=== PATIENT | male | born 1985 | race Caucasian/White ===

== ENCOUNTER 2016-09-11 16:31 | Inpatient (IN) | payer MEDICARE, OTHER ==
[~2016-09-11] VITALS: Ht 182.9 cm; Wt 137.6 kg
[2016-09-11 16:33] VITALS: BP 137/97; PULSE 104; RESP 14; TEMP 97.8; O2SAT 96
[2016-09-11 17:01] VITALS: BP 137/81; PULSE 107; RESP 18; TEMP 97.8; O2SAT 95
[2016-09-11] MEDS ORDERED: MULT1TAB84 PO (17:20)
[2016-09-11] MEDS ORDERED: FLUO40CA PO (17:20)
[2016-09-11] MEDS ORDERED: LAMO25 PO (17:20)
[2016-09-11] MEDS ORDERED: CHOL50006 PO (17:20)
[2016-09-11] MEDS ORDERED: CLOZ200T PO (17:20)
[2016-09-11] MEDS ORDERED: PROP10TA6 PO (17:20)
[2016-09-11] MEDS ORDERED: ARIP1TAB7 PO (17:20)
[2016-09-11] MEDS ORDERED: CLOZ100T3 PO (17:20)
[2016-09-11] MEDS ORDERED: TRAZ300T2 PO (17:20)
[2016-09-11] MEDS ORDERED: TOPA100T11 PO (17:20)
[2016-09-11] MEDS ORDERED: FISH1000 PO (17:20)
--- NOTE | 2016-09-11 17:31 | PD ---
HPI Chief Complaint: Psychiatric Symptoms Time Seen by Provider: 17:27 Travel History International Travel<30 days: No Contact w/Intl Traveler<30days: No Traveled to known affect area: No History of Present Illness HPI 31-year-old male coming in voluntarily for psychiatric evaluation. Patient has a history of psychiatric disease, and his psychiatrist saw him today and felt that he should be evaluated here for medication review. Patient is hearing more voices, and is suicidal without specific plan. Patient recently has a 73-eelen-uin son. He has no acute medical complaints or problems at this time. He has a history of chronic pain and takes Lyrica for fibromyalgia type symptoms. Patient is a nonsmoker and does not drink. He is allergic to Darvocet, gabapentin, and Haldol. [facility] Social History Alcohol Use: No Tobacco Use: No Substance Use: No Allergies-Medications (Allergen,Severity, Reaction): Coded Allergies: Darvocet-N 100 (Verified Allergy, Unknown, 09/11/16) Gabapentin (Verified Allergy, Unknown, 09/11/16) Haldol (Verified Allergy, Unknown, 09/11/16) Reported Meds & Prescriptions Reported Meds & Active Scripts Active Reported Multivitamin Adults (Multiple Vitamins W/ Minerals) 1 Tab 1 Tab PO DAILY Fish Oil ([place]-3 Fatty Acids) 1,000 Mg Cap 1 Tab PO DAILY Vitamin D (Cholecalciferol) 5,000 Unit Tab 1 Tab PO DAILY Propranolol (Propranolol HCl) 10 Mg Tab 10 Mg PO DAILY Trazodone (Trazodone HCl) 300 Mg Tab 200 Mg PO HS Clozapine 100 Mg Tab 100 Mg PO DAILY Clozapine 200 Mg Tab 450 Mg PO HS Fluoxetine (Fluoxetine HCl) 40 Mg Cap 40 Cap PO DAILY Topamax (Topiramate) 100 Mg Tab 100 Mg PO BID Lamictal (Lamotrigine) 25 Mg Tab 10 Mg PO DAILY Abilify (Aripiprazole) 20 Mg Tab 25 Mg PO DAILY Review of Systems Except as stated in HPI: all other systems reviewed are Neg General / Constitutional: No: Fever Eyes: No: Visual changes HENT: No: Headaches Cardiovascular: No: Chest Pain or Discomfort Respiratory: No: Shortness of Breath Gastrointestinal: No: Abdominal Pain Genitourinary: No: Dysuria Musculoskeletal: No: Pain Skin: No Rash Neurologic: No: Weakness Psychiatric: No: Depression Endocrine: No: Polydipsia Hematologic/Lymphatic: No: Easy Bruising Physical Exam Narrative GENERAL: Patient appears in no acute distress. SKIN: Warm and dry. Normal color. Normal turgor. HEAD: Atraumatic. Normocephalic. EYES: Pupils equal and round. No scleral icterus. No injection or drainage. ENT: No nasal bleeding or discharge. Mucous membranes pink and moist. NECK: Trachea midline. No JVD. CARDIOVASCULAR: Regular rate and rhythm. RESPIRATORY: No accessory muscle use. Clear to auscultation. Breath sounds equal bilaterally. GASTROINTESTINAL: Abdomen soft, non-tender, nondistended. Hepatic and splenic margins not palpable. MUSCULOSKELETAL: Extremities without clubbing, cyanosis, or edema. No obvious deformities. NEUROLOGICAL: Awake and alert. No obvious cranial nerve deficits. Motor grossly within normal limits. Five out of 5 muscle strength in the arms and legs. Normal speech. PSYCHIATRIC: Appropriate mood and affect; insight and judgment normal. Patient reports tender hallucinations. Data Data Last Documented VS Vital Signs Date Time Temp Pulse Resp B/P Pulse Ox O2 Delivery O2 Flow Rate FiO2 09/11/16 17:01 97.8 107 18 137/81 95 09/11/16 16:33 Room Air Orders Psych Screen (09/11/16 17:07) Complete Blood Count With Diff (09/11/16 17:08) Comprehensive Metabolic Panel (09/11/16 17:08) Drug Screen, Random Urine (09/11/16 17:08) Alcohol (Ethanol) (09/11/16 17:08) MDM Medical Decision Making Medical Screen Exam Complete: Yes Emergency Medical Condition: Yes Differential Diagnosis Auditory hallucination. Mood disorder. Suicidal ideation. Narrative Course Patient is medically stable at time of exam. Psychiatric labs ordered per protocol. Patient is medically clear for psychiatric evaluation. Diagnosis Primary Impression: Suicidal ideations Additional Impression: Medical clearance for psychiatric admission Condition: Stable Miguel Titus Sep 11, 2016 17:30
[2016-09-11] MEDS ORDERED: IMIT100T PO (17:45)
[2016-09-11] MEDS ORDERED: PROP120C PO (17:45)
[2016-09-11] MEDS ORDERED: LYRI50CA PO (17:45)
[2016-09-11 18:09] LABS: AUTOMATED NEUTROPHIL # 7.5 TH/MM3 (1.8-7.7); BASOPHIL # 0.1 TH/MM3 (0-0.2); BASOPHIL % 0.7 % (0.0-2.0); HEMATOCRIT 43.1 % (39.0-51.0); LYMPH % 26.8 % (9.0-44.0); MEAN CELL VOLUME 87.2 FL (80.0-100.0); MEAN CORPUSCULAR HEMOGLOBIN 30.1 PG (27.0-34.0); MEAN CORPUSCULAR HGB CONC 34.5 % (32.0-36.0); MONO % 4.9 % (0.0-8.0); NEUT % 67.6 % (16.0-70.0); PLATELET COUNT 286 TH/MM3 (150-450); RED BLOOD COUNT 4.94 MIL/MM3 (4.50-5.90); RED CELL DISTRIBUTION WIDTH 14.4 % (11.6-17.2); WHITE BLOOD COUNT 11.1 TH/MM3 (4.0-11.0)
[2016-09-11 18:27] LABS: ALKALINE PHOSPHATASE 66 U/L (45-117); TOTAL BILIRUBIN ADULT 0.3 MG/DL (0.2-1.0)
[2016-09-11 18:28] LABS: HEMO FLAGS AUTO DIFF
[2016-09-11 18:34] LABS: AMPHETAMINE, URINE NEG (NEG); BARBITURATES, URINE NEG (NEG); COCAINE, URINE NEG (NEG)
[2016-09-11 18:37] LABS: ALT (GPT) 59 U/L (12-78); ANION GAP 11 MEQ/L (5-15); AST (GOT) 16 U/L (15-37); BICARBONATE 22.5 MEQ/L (21.0-32.0); BLOOD UREA NITROGEN 13 MG/DL (7-18); CHLORIDE 111 MEQ/L (98-107); GLOMERULAR FILTRATION RATE 69 ML/MIN (>89); POTASSIUM 3.5 MEQ/L (3.5-5.1); SODIUM (NA) 144 MEQ/L (136-145)
[2016-09-11 19:37] LABS: BANDS 2 % (0-6); POLYS (SEG NEUTROPHILS) 61 % (16-70); WBC DIFF SAMPLE 100
[2016-09-11 19:39] LABS: PLATELET ESTIMATE SMEAR NORMAL (NORMAL); PLATELET MORPHOLOGY NORMAL (NORMAL); SCAN/DIFF FINAL DIFF MANUAL
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
[2016-09-11] MEDS ORDERED: MAGNESIUM HYDROXIDE SUSP 30 ML CUP PO PRN (20:00)
[2016-09-11] MEDS ORDERED: ALUMINUM/MAGNESIUM/SIMETH 30 ML CUP PO PRN (20:00)
[2016-09-11] MEDS ORDERED: PILL SPLITTER OTHER PRN (20:30)
[2016-09-11 20:44] VITALS: BP 119/56; PULSE 84; RESP 18; O2SAT 97
[2016-09-11 21:00] VITALS: BP 141/81; PULSE 95; RESP 16; TEMP 97.4; O2SAT 96
[2016-09-11] MEDS ORDERED: traZODone HCL 100 MG TAB PO SCH (21:00)
[2016-09-11] MEDS: TOPIRAMATE 100 MG TAB PO SCH (22:39)
[2016-09-11] MEDS: cloZAPine 100 MG TAB PO SCH (22:39)
[2016-09-12 06:19] VITALS: BP 142/77; PULSE 97; RESP 16; TEMP 97.4; O2SAT 98
[2016-09-12 08:13] LABS: ANION GAP 10 MEQ/L (5-15); BICARBONATE 19.9 MEQ/L (21.0-32.0); CHLORIDE 112 MEQ/L (98-107); GLOMERULAR FILTRATION RATE 81 ML/MIN (>89); POTASSIUM 4.3 MEQ/L (3.5-5.1); SODIUM (NA) 142 MEQ/L (136-145)
[2016-09-12 08:15] LABS: HDL CHOLESTEROL 55.5 MG/DL (40.0-60.0); LDL CHOLESTEROL 73 MG/DL (0-99)
[2016-09-12 08:20] LABS: BLOOD UREA NITROGEN 12 MG/DL (7-18)
[2016-09-12] MEDS: cloZAPine 100 MG TAB PO SCH ×2 (08:36→21:18)
[2016-09-12] MEDS: ARIPiprazole 5 MG TAB PO SCH (08:36)
[2016-09-12] MEDS: CHOLECALCIFEROL (VIT D3) 5000 UNIT CAP PO SCH (08:36)
[2016-09-12] MEDS: FLUoxetine HCL 20 MG CAP PO SCH (08:36)
[2016-09-12] MEDS: TOPIRAMATE 100 MG TAB PO SCH ×2 (08:36→21:18)
[2016-09-12] MEDS: lamoTRIgine 100 MG TAB PO SCH (08:36)
[2016-09-12] MEDS: MULTIVITAMINS/MINERALS THERAPEUTIC TAB PO SCH (08:37)
[2016-09-12] MEDS ORDERED: PROPRANOLOL HCL LA 120 MG CAP PO SCH (09:00)
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
[2016-09-12 12:22] LABS: HEMOGLOBIN A1a 1.4 %; HEMOGLOBIN A1b 1.7 %; HEMOGLOBIN Ao 86.5 %; HEMOGLOBIN LA1C 1.8 %; HEMOGLOBIN P3 3.3 %
[2016-09-12] MEDS ORDERED: BENZTROPINE MESYLATE 1 MG TAB PO PRN (13:15)
[2016-09-12] MEDS ORDERED: BENZTROPINE MESYLATE 2 MG/2 ML VIAL IM PRN (13:15)
--- NOTE | 2016-09-12 14:42 | PD.CONS ---
HPI Service [facility] Hospitalists Consult Requested By Primary Care Physician Unknown Diagnoses: History of Present Illness Pt with ptsd, shizoaffective d/o, chronic pain and complex regional pain by hx. apparently admitted for hearing voices and visions of him killing others. Apparently the voice calls itself Salizar. We were consulted to see this patient regarding chronic pain that he has had for many yrs. currently pt says he just has a migraine and asking for his sumatriptan he uses several times per week at dose of 100mg. Review of Systems Other chronic pain. Past Family Social History Past Medical History migraine complex regional pain syndrome per hx depression ptsd schizoaffective d/o ulnar nerve transplants bilaterally. Reported Medications Imitrex (Sumatriptan Succinate) 100 Mg Tab 100 Mg PO ONCE PRN If a satisfactory response has not been obtained at 2 hours, a second dose may be administered Propranolol ER 24 HR (Propranolol HCl) 120 Mg Cap 120 Mg PO DAILY Lyrica (Pregabalin) 50 Mg Cap 50 Mg PO TID Multivitamin Adults (Multiple Vitamins W/ Minerals) 1 Tab 1 Tab PO DAILY Fish Oil ([place]-3 Fatty Acids) 1,000 Mg Cap 1 Tab PO DAILY Vitamin D (Cholecalciferol) 5,000 Unit Tab 1 Tab PO DAILY Trazodone (Trazodone HCl) 300 Mg Tab 200 Mg PO HS Clozapine 100 Mg Tab 100 Mg PO DAILY Clozapine 200 Mg Tab 450 Mg PO HS Fluoxetine (Fluoxetine HCl) 40 Mg Cap 40 Cap PO DAILY Topamax (Topiramate) 100 Mg Tab 100 Mg PO BID Lamictal (Lamotrigine) 25 Mg Tab 10 Mg PO DAILY Abilify (Aripiprazole) 20 Mg Tab 25 Mg PO DAILY Allergies: Coded Allergies: Darvocet-N 100 (Verified Allergy, Unknown, 09/11/16) Gabapentin (Verified Allergy, Unknown, 09/11/16) Haldol (Verified Allergy, Unknown, 09/11/16) Family History nc Social History no etoh/tob Physical Exam Vital Signs nad heart reg lung cta abd s/nt ext no edema Vital Signs Date Time Temp Pulse Resp B/P Pulse Ox O2 Delivery O2 Flow Rate FiO2 09/12/16 06:19 97.4 97 16 142/77 98 09/11/16 21:00 97.4 95 16 141/81 96 09/11/16 20:44 84 18 119/56 97 Room Air 09/11/16 17:01 97.8 107 18 137/81 95 09/11/16 16:33 97.8 104 14 137/97 96 Room Air Laboratory Laboratory Tests Test 09/11/16 09/11/16 09/12/16 17:48 17:50 07:14 White Blood Count 11.1 Red Blood Count 4.94 Hemoglobin 14.9 Hematocrit 43.1 Mean Corpuscular Volume 87.2 Mean Corpuscular Hemoglobin 30.1 Mean Corpuscular Hemoglobin 34.5 Concent Red Cell Distribution Width 14.4 Platelet Count 286 Mean Platelet Volume 9.2 Neutrophils (%) (Auto) 67.6 Lymphocytes (%) (Auto) 26.8 Monocytes (%) (Auto) 4.9 Eosinophils (%) (Auto) 0.0 Basophils (%) (Auto) 0.7 Neutrophils # (Auto) 7.5 Lymphocytes # (Auto) 3.0 Monocytes # (Auto) 0.5 Eosinophils # (Auto) 0.0 Basophils # (Auto) 0.1 CBC Comment AUTO DIFF Differential Total Cells 100 Counted Neutrophils % (Manual) 61 Band Neutrophils % 2 Lymphocytes % 35 Monocytes % 2 Neutrophils # (Manual) 7.0 Differential Comment FINAL DIFF MANUAL Platelet Estimate NORMAL Platelet Morphology Comment NORMAL Sodium Level 144 142 Potassium Level 3.5 4.3 Chloride Level 111 112 Carbon Dioxide Level 22.5 19.9 Anion Gap 11 10 Blood Urea Nitrogen 13 12 Creatinine 1.24 1.08 Estimat Glomerular Filtration 69 81 Rate Random Glucose 120 86 Calcium Level 8.7 8.4 Total Bilirubin 0.3 Aspartate Amino Transf 16 (AST/SGOT) Alanine Aminotransferase 59 (ALT/SGPT) Alkaline Phosphatase 66 Total Protein 7.7 Albumin 3.9 Ethyl Alcohol Level LESS THAN 3 Urine Opiates Screen NEG Urine Barbiturates Screen NEG Urine Amphetamines Screen NEG Urine Benzodiazepines Screen NEG Urine Cocaine Screen NEG Urine Cannabinoids Screen NEG Hemoglobin A1c 4.9 Triglycerides Level 119 Cholesterol Level 152 LDL Cholesterol 73 HDL Cholesterol 55.5 Cholesterol/HDL Ratio 2.73 Result Diagram: 09/11/16 1748 09/12/16 0714 Assessment and Plan Problem List: (1) Chronic pain Status: Acute Plan: Pt says he was diagnosed with complex regional pain syndrome many yrs ago. He takes lyrica and that is not helpful according to pt. Pt says the pain is no worse than baseline. He follows with a pain specialist on outpt basis in [place]. Currently just asking for sumatriptan which he takes weekly for migraines. We agreed not to start any opioid pain medications. At this point I would recommend looking for ways to trim his medication list (2) Post-traumatic stress disorder, chronic Status: Acute Plan: per psych (3) Schizoaffective disorder Status: Acute Plan: per psych. Problem Qualifiers (1) Schizoaffective disorder: Qualified Code: F25.8 - Other schizoaffective disorders Christiano Ramos MD Sep 12, 2016 14:42
[2016-09-12] MEDS ORDERED: SUMAtriptan SUCCINATE 50 MG TAB PO ONE (15:00)
[2016-09-12 19:59] VITALS: BP 136/68; PULSE 81; RESP 16; TEMP 98.1; O2SAT 97
[2016-09-12] MEDS: traZODone HCL 100 MG TAB PO SCH (21:18)
[2016-09-12] MEDS: PROPRANOLOL HCL LA 120 MG CAP PO SCH (21:19)
[2016-09-13 06:17] VITALS: BP 130/79; PULSE 77; RESP 18; TEMP 97.8; O2SAT 97
[2016-09-13] MEDS: lamoTRIgine 100 MG TAB PO SCH (08:50)
[2016-09-13] MEDS: ARIPiprazole 5 MG TAB PO SCH (08:50)
[2016-09-13] MEDS: PROPRANOLOL HCL LA 120 MG CAP PO SCH ×2 (08:50→22:07)
[2016-09-13] MEDS: cloZAPine 100 MG TAB PO SCH ×2 (08:50→21:00)
[2016-09-13] MEDS: FLUoxetine HCL 20 MG CAP PO SCH (08:50)
[2016-09-13] MEDS: TOPIRAMATE 100 MG TAB PO SCH ×2 (08:51→22:07)
[2016-09-13] MEDS: MULTIVITAMINS/MINERALS THERAPEUTIC TAB PO SCH (08:51)
[2016-09-13] MEDS: CHOLECALCIFEROL (VIT D3) 5000 UNIT CAP PO SCH (09:00)
--- NOTE | 2016-09-13 16:08 | HHI.PYPN ---
Subjective Remarks Patient was seen and case discussed with nursing. Patient is pleasant and cooperative with exam. Describes various auditory hallucinations, different voices. He says the worst is named Chambers. Chambers is "very evil." He is telling him to hurt himself and others. Patient has no intention of hurting himself or others and is able to ignore this suggestion. Patient is seen reading a [employer] novel and he was told this is not a good idea given his state of psychosis. He is compliant with his medications. Objective Alert: Yes [place]: Person (ox4) Mood: Calm Affect: Other (variable) Memory Intact: Comment (no impairment . Not formally tetsed) Hallucinations: Auditory (voice named Chambers), Visual Delusions: No Delusion Type: Paranoid Suicidal: Ideation (denies) Homicidal: Ideation (thoughts of killing people in a yarsanism.) Insight/Judgement Poor Vitals/IOs Vital Signs Date Time Temp Pulse Resp B/P Pulse Ox O2 Delivery O2 Flow Rate FiO2 09/13/16 06:17 97.8 77 18 130/79 97 09/11/16 20:44 Room Air Assessment & Plan Problem List: (1) Schizoaffective disorder ICD Code: F25.9 (2) Post-traumatic stress disorder, chronic ICD Code: F43.12 Assessment & Plan Continue current treatment plan Justification for Cont. Inpt. Patient will decompensate in a less restrictive setting Request HC Surrog/Guard Advoc?: No Problem Qualifiers (1) Schizoaffective disorder: Qualified Code: F25.8 - Other schizoaffective disorders Rambo Roblero DO Sep 13, 2016 16:08
[2016-09-13 19:37] VITALS: BP 118/66; PULSE 77; RESP 18; TEMP 97.1; O2SAT 94
[2016-09-13] MEDS: hydrOXYzine HCL 50 MG TAB PO PRN (22:08)
[2016-09-13] MEDS: traZODone HCL 100 MG TAB PO SCH (22:08)
[2016-09-14 05:47] VITALS: BP 135/64; PULSE 73; RESP 18; TEMP 97.3; O2SAT 97
[2016-09-14] MEDS: FLUoxetine HCL 20 MG CAP PO SCH (09:02)
[2016-09-14] MEDS: MULTIVITAMINS/MINERALS THERAPEUTIC TAB PO SCH (09:02)
[2016-09-14] MEDS: ARIPiprazole 5 MG TAB PO SCH (09:02)
[2016-09-14] MEDS: PROPRANOLOL HCL LA 120 MG CAP PO SCH ×2 (09:03→21:02)
[2016-09-14] MEDS: TOPIRAMATE 100 MG TAB PO SCH ×2 (09:03→21:02)
[2016-09-14] MEDS: lamoTRIgine 100 MG TAB PO SCH (09:03)
[2016-09-14] MEDS: cloZAPine 100 MG TAB PO SCH ×2 (09:03→21:02)
[2016-09-14] MEDS: CHOLECALCIFEROL (VIT D3) 5000 UNIT CAP PO SCH (09:03)
--- NOTE | 2016-09-14 13:29 | HHI.PYPN ---
Subjective Remarks Patient was seen and case discussed with nursing. Patient is pleasant and cooperative with exam. His compliant with his medications. Notices slight improvement in his evil voice named Chambers. Otherwise she complaint remains hallucinations. Denies paranoia and no bizarre delusions were elicited. His ex -girlfriend plans to bring in his CPAP machine whereupon he will be transferred to b unit Objective Alert: Yes [place]: Person (ox4) Mood: Calm Affect: Other (variable) Memory Intact: Comment (no impairment . Not formally tetsed) Hallucinations: Auditory (voice named Chambers), Visual Delusions: No Delusion Type: Paranoid Suicidal: Ideation (denies) Homicidal: Ideation (thoughts of killing people in a jainism.) Insight/Judgement Fair Vitals/IOs Vital Signs Date Time Temp Pulse Resp B/P Pulse Ox O2 Delivery O2 Flow Rate FiO2 09/14/16 05:47 97.3 73 18 135/64 97 09/11/16 20:44 Room Air Assessment & Plan Problem List: (1) Schizoaffective disorder ICD Code: F25.9 (2) Post-traumatic stress disorder, chronic ICD Code: F43.12 Assessment & Plan Continue current treatment plan Justification for Cont. Inpt. Patient will decompensate in a less restrictive setting Request HC Surrog/Guard Advoc?: No Problem Qualifiers (1) Schizoaffective disorder: Qualified Code: F25.8 - Other schizoaffective disorders Rambo Roblero DO Sep 14, 2016 13:29
[2016-09-14 19:41] VITALS: BP 122/58; PULSE 76; RESP 18; TEMP 97.3; O2SAT 97
[2016-09-14] MEDS: traZODone HCL 100 MG TAB PO SCH (21:01)
[2016-09-14] MEDS: hydrOXYzine HCL 50 MG TAB PO PRN (21:03)
[2016-09-15 05:41] VITALS: BP 105/52; PULSE 63; RESP 18; TEMP 97.5; O2SAT 99
[2016-09-15] MEDS: CHOLECALCIFEROL (VIT D3) 5000 UNIT CAP PO SCH (09:00)
[2016-09-15] MEDS: PROPRANOLOL HCL LA 120 MG CAP PO SCH ×2 (11:36→21:19)
[2016-09-15] MEDS: ARIPiprazole 5 MG TAB PO SCH (11:36)
[2016-09-15] MEDS: FLUoxetine HCL 20 MG CAP PO SCH (11:36)
[2016-09-15] MEDS: TOPIRAMATE 100 MG TAB PO SCH ×2 (11:37→21:19)
[2016-09-15] MEDS: cloZAPine 100 MG TAB PO SCH ×2 (11:37→21:19)
[2016-09-15] MEDS: lamoTRIgine 100 MG TAB PO SCH (11:37)
[2016-09-15] MEDS: MULTIVITAMINS/MINERALS THERAPEUTIC TAB PO SCH (11:37)
--- NOTE | 2016-09-15 11:44 | HHI.PYPN ---
Subjective Remarks Patient seen and examined. Chart reviewed. Case discussed with nursing staff who reports patient is insightful regarding his auditory hallucinations. He remains somewhat groggy per nursing report. On my examination today, the patient complains of some ongoing sedation. He denies any suicidal ideation. He endorses ongoing thoughts of violence with no specific victim at this time. Patient counseled to seek out nursing staff if he thinks he might hurt someone. He says that the voices are still there but Chambers "is not as boisterous." Besides the sedation, denies side effects from medications. Also notes that he uses CPAP for HUNTER at home. Review of Systems Other Except as above, no side effects from medications. Objective Alert: Yes (sleepy but easily arousable) [place]: Person (once again oriented 3) Mood: Calm Affect: Blunted Memory Intact: Comment (intact on clinical exam) Hallucinations: Auditory (as above), Visual (denies) Delusions: No Delusion Type: Other (no delusions) Suicidal: Ideation (denies suicidal ideation) Homicidal: Ideation (vague thoughts of violence. No specific victim.) Insight/Judgement Fair Remarks No motoric abnormalities noted. Thought process linear. Labs Labs reviewed. I note that although I ordered a clozapine level the lab has drawn a clonazepam level. I have asked the nursing staff to call the laboratory to have the proper level drawn. Vitals/IOs Vital Signs Date Time Temp Pulse Resp B/P Pulse Ox O2 Delivery O2 Flow Rate FiO2 09/15/16 05:41 97.5 63 18 105/52 99 09/11/16 20:44 Room Air Assessment & Plan Problem List: (1) Schizoaffective disorder ICD Code: F25.9 (2) Post-traumatic stress disorder, chronic ICD Code: F43.12 Assessment & Plan Given ongoing sedation, discontinue trazodone. Continue other psychotropics as ordered for now. Awaiting outpatient treatment records. Continue other medications and care as ordered. Once the patient is a longer having violent thoughts we may be able to transfer him to a lower acuity unit where he can use his CPAP. Justification for Cont. Inpt. Impairment in safety. Medication changes. Risk for decompensation. Discharge Planning Pending psychiatric stabilization Request HC Surrog/Guard Advoc?: No Problem Qualifiers (1) Schizoaffective disorder: Qualified Code: F25.8 - Other schizoaffective disorders Wayne Roberson MD Sep 15, 2016 11:44
[2016-09-15 17:55] VITALS: BP 125/76; PULSE 79; RESP 18; TEMP 97.9; O2SAT 99
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
[2016-09-15] MEDS: hydrOXYzine HCL 50 MG TAB PO PRN (21:19)
[2016-09-16 05:27] VITALS: BP 115/67; PULSE 68; RESP 18; TEMP 97.3; O2SAT 99
[2016-09-16] MEDS: CHOLECALCIFEROL (VIT D3) 5000 UNIT CAP PO SCH (09:00)
[2016-09-16] MEDS: PROPRANOLOL HCL LA 120 MG CAP PO SCH ×2 (09:00→20:23)
[2016-09-16] MEDS: cloZAPine 100 MG TAB PO SCH ×2 (09:11→20:24)
[2016-09-16] MEDS: ARIPiprazole 5 MG TAB PO SCH (09:11)
[2016-09-16] MEDS: lamoTRIgine 100 MG TAB PO SCH (09:11)
[2016-09-16] MEDS: TOPIRAMATE 100 MG TAB PO SCH ×2 (09:11→20:23)
[2016-09-16] MEDS: MULTIVITAMINS/MINERALS THERAPEUTIC TAB PO SCH (09:11)
[2016-09-16] MEDS: FLUoxetine HCL 20 MG CAP PO SCH (09:12)
--- NOTE | 2016-09-16 10:11 | HHI.PYPN ---
Subjective Remarks Patient seen and examined with counselor and occupational therapist in treatment team. Chart reviewed. Case discussed with nursing staff, counselor an occupational therapist. Per nursing staff patient complaining of ongoing auditory hallucinations. Per occupational therapist, patient not participating in groups. On my examination today, the patient remains fairly sleepy although he is more easily awakened now that he has been taken off all of the trazodone. On my examination today the patient says that the main voice of Reyes has gone although the other voices continue. He denies any suicidal or homicidal ideation and emphasizes that he only experiences "images of violence" and no actual homicidal ideation, intent or plan. I have reviewed the paper chart and we have requested records from his treating psychiatrist in [place] but have not yet received any. Patient reports he has had no staring spells since being in the hospital. We discussed the risks and benefits of medication changes going forward with the goal of lessening sedation. Review of Systems Other Besides some ongoing sedation, no somatic complaints. Objective Alert: Yes (remains a little bit sleepy but easily arousable) [place]: Person (oriented 3) Mood: Calm Affect: Blunted Memory Intact: Comment (intact on clinical exam) Hallucinations: Auditory (see above), Visual (patient is describing internal mental images of violence. No rui joyce visual hallucinations.. ) Delusions: No Delusion Type: Other (no delusions) Suicidal: Ideation (denies suicidal ideation) Homicidal: Ideation (denies homicidal ideation, intent or plan.) Insight/Judgement Fair Remarks No abnormal motor movements noted. Thought process linear. No loosening of associations. Labs Labs reviewed. Clozapine level ordered and is pending. Vitals/IOs Vital Signs Date Time Temp Pulse Resp B/P Pulse Ox O2 Delivery O2 Flow Rate FiO2 09/16/16 05:27 97.3 68 18 115/67 99 Assessment & Plan Problem List: (1) Schizoaffective disorder ICD Code: F25.9 (2) Post-traumatic stress disorder, chronic ICD Code: F43.12 Assessment & Plan Patient with some reported interval improvement in his psychotic symptoms. I am loath therefore to taper his antipsychotics, although the clozapine is likely contributing to patient's sedation. Patient's Topamax would be the next logical choice for tapering to reduce sedation, but the concern would be for provoking a seizure as he reports a history of these. I will request a neurological consultation to see if the Topamax can safely be tapered. Awaiting records from treating psychiatrist in [place]. Continue other medications and care as ordered. Patient encouraged to attend all groups. Justification for Cont. Inpt. Complicating conditions, namely sedation. Discharge Planning Pending medication adjustments Request HC Surrog/Guard Advoc?: No Problem Qualifiers (1) Schizoaffective disorder: Qualified Code: F25.8 - Other schizoaffective disorders Wayne Roberson MD Sep 16, 2016 10:11
[2016-09-16 11:45] LABS: AUTOMATED NEUTROPHIL # 5.7 TH/MM3 (1.8-7.7); BASOPHIL % 0.3 % (0.0-2.0); HEMATOCRIT 45.2 % (39.0-51.0); HEMO FLAGS DIFF FINAL; LYMPHOCYTE # 2.6 TH/MM3 (1.0-4.8); MEAN CELL VOLUME 88.6 FL (80.0-100.0); MEAN CORPUSCULAR HEMOGLOBIN 30.5 PG (27.0-34.0); MEAN CORPUSCULAR HGB CONC 34.5 % (32.0-36.0); MONO % 9.9 % (0.0-8.0); NEUT % 61.8 % (16.0-70.0); PLATELET COUNT 265 TH/MM3 (150-450); RED CELL DISTRIBUTION WIDTH 14.6 % (11.6-17.2); WHITE BLOOD COUNT 9.2 TH/MM3 (4.0-11.0)
[2016-09-16] MEDS: hydrOXYzine HCL 50 MG TAB PO PRN ×2 (17:44→23:30)
[2016-09-17 06:07] VITALS: BP 107/70; PULSE 68; RESP 18; TEMP 97.3; O2SAT 97
--- NOTE | 2016-09-17 08:53 | PD.CONS ---
History of Present Illness Service Neurology Consult Requested By psych Reason for Consult sleepiness/med titration Primary Care Physician Unknown History of Present Illness 31 y/o m who has relocated from [place], ptsd, schizoaffective, migraines, antonino. he takes topamax for headaches. has been on the same dose for years. he takes lamictal for "mood control". he is on CPAP for ANTONINO. without using it he feels sleepy during the day. no clear hx of sz. denies any focal weakness/cp/dyspnea/vision loss/sensory symptoms. Review of Systems Other as above and admit hp Past Family Social History Past Medical History migraine complex regional pain syndrome per hx depression ptsd schizoaffective d/o ulnar nerve transplants bilaterally. Reported Medications Imitrex (Sumatriptan Succinate) 100 Mg Tab 100 Mg PO ONCE PRN If a satisfactory response has not been obtained at 2 hours, a second dose may be administered Propranolol ER 24 HR (Propranolol HCl) 120 Mg Cap 120 Mg PO DAILY Lyrica (Pregabalin) 50 Mg Cap 50 Mg PO TID Multivitamin Adults (Multiple Vitamins W/ Minerals) 1 Tab 1 Tab PO DAILY Fish Oil ([place]-3 Fatty Acids) 1,000 Mg Cap 1 Tab PO DAILY Vitamin D (Cholecalciferol) 5,000 Unit Tab 1 Tab PO DAILY Trazodone (Trazodone HCl) 300 Mg Tab 200 Mg PO HS Clozapine 100 Mg Tab 100 Mg PO DAILY Clozapine 200 Mg Tab 450 Mg PO HS Fluoxetine (Fluoxetine HCl) 40 Mg Cap 40 Cap PO DAILY Topamax (Topiramate) 100 Mg Tab 100 Mg PO BID Lamictal (Lamotrigine) 25 Mg Tab 10 Mg PO DAILY Abilify (Aripiprazole) 20 Mg Tab 25 Mg PO DAILY Allergies: Coded Allergies: Darvocet-N 100 (Verified Allergy, Unknown, 09/11/16) Gabapentin (Verified Allergy, Unknown, 09/11/16) Haldol (Verified Allergy, Unknown, 09/11/16) Family History negative for sz Social History no etoh/tob Review of Systems All other ROS: ROS reviewed as documented in chart Past Family Social History Allergies: Coded Allergies: Darvocet-N 100 (Verified Allergy, Unknown, 09/11/16) Gabapentin (Verified Allergy, Unknown, 09/11/16) Haldol (Verified Allergy, Unknown, 09/11/16) Active Ordered Medications Current Medications Medications (Trade) Dose Ordered Sig/Heavenly Route Start Time Stop Time Status Last Admin (Milk Of Magnesia Liq) 30 ml DAILY PRN PO 09/11/16 20:00 (Mag-Al Plus Susp Liq) 30 ml Q6H PRN PO 09/11/16 20:00 (Abilify) 25 mg DAILY PO 09/12/16 09:00 09/16/16 09:11 (Clozaril) 100 mg DAILY PO 09/12/16 09:00 09/16/16 09:11 (PROzac) 40 mg DAILY PO 09/12/16 09:00 09/16/16 09:12 (Theragran M Tab) 1 tab DAILY PO 09/12/16 09:00 09/16/16 09:11 (Topamax) 100 mg BID PO 09/11/16 21:00 09/16/16 20:23 (Vitamin D3) 5,000 units DAILY PO 09/12/16 09:00 09/16/16 09:00 (Clozaril) 450 mg HS PO 09/11/16 21:00 09/16/16 20:24 (LaMICtal) 100 mg DAILY PO 09/12/16 09:00 09/16/16 09:11 (Pill Splitter) 1 ea UNSCH PRN OTHER 09/11/16 20:30 (Inderal La) 120 mg BID PO 09/12/16 21:00 09/16/16 20:23 (Atarax) 50 mg Q6H PRN PO 09/12/16 13:15 09/16/16 23:30 (Cogentin) 1 mg Q12HR PRN PO 09/12/16 13:15 (Cogentin Inj) 1 mg Q12HR PRN IM 09/12/16 13:15 Exam I&O / VS Vital Signs Date Time Temp Pulse Resp B/P Pulse Ox O2 Delivery O2 Flow Rate FiO2 09/17/16 06:07 97.3 68 18 107/70 97 General: Alert and Oriented, No acute distress Eye: EOMI Respiratory: Non-labored respirations Neurologic: Alert, Oriented, Normal sensory, Normal motor, No focal defects, CN II-XII intact, Gag reflex normal, Normal DTR's Psychiatric: Cooperative, Appropriate mood & affect, Normal judgement, Non- suicidal Exam Comments ox 3, monotone speech, reasonable eye contact, no aphasia, no focal weakness Review/Management Diagnosis/Plan: (1) Obstructive sleep apnea Plan: would resume cpap therapy should help daytime somnolence in addition to mood. depression may also be contributory. exercise/wt loss defer to psych team (2) Migraine Plan: topamax unlikely cause of somnolence; appears to be untreated apnea. psych meds far more likely to cause eds then topamax. in addition has been on this medication for some time. but if the psych team wants, then can reduce it to 50mg bid call me if needed Problem Qualifiers (1) Migraine: Toby Evans MD Sep 17, 2016 08:53
[2016-09-17] MEDS: CHOLECALCIFEROL (VIT D3) 5000 UNIT CAP PO SCH (09:00)
[2016-09-17] MEDS: lamoTRIgine 100 MG TAB PO SCH (09:42)
[2016-09-17] MEDS: TOPIRAMATE 100 MG TAB PO SCH (09:42)
[2016-09-17] MEDS: ARIPiprazole 5 MG TAB PO SCH (09:42)
[2016-09-17] MEDS: PROPRANOLOL HCL LA 120 MG CAP PO SCH ×2 (09:42→21:26)
[2016-09-17] MEDS: FLUoxetine HCL 20 MG CAP PO SCH (09:43)
[2016-09-17] MEDS: MULTIVITAMINS/MINERALS THERAPEUTIC TAB PO SCH (09:43)
[2016-09-17] MEDS: cloZAPine 100 MG TAB PO SCH ×2 (09:43→21:26)
--- NOTE | 2016-09-17 09:49 | HHI.PYPN ---
Subjective Remarks Patient seen and examined with counselor. Chart reviewed. Case discussed with nursing staff reports patient has been a behavioral problem overnight. On my examination today, patient reports the violent imagery in his head's subsiding and now "it is just annoying." He says that the murmuring voices that he has are minimal at this point and he has not heard from Chambers in over a day. Denies SI or HI. No other issues noted. Review of Systems Other No somatic complaints for me today Objective Alert: Yes [place]: Person (once again oriented 3) Mood: Calm Affect: Blunted Memory Intact: Comment (intact on clinical exam) Hallucinations: Auditory (minimal, as above. No command auditory hallucinations at this point.), Visual (no visual hallucinations) Delusions: No Delusion Type: Other (no delusions) Suicidal: Ideation (denies suicidal ideation) Homicidal: Ideation (denies homicidal ideation) Insight/Judgement Fair Remarks No motoric abnormalities noted. Thought process linear. Speech within normal limits for rate, tone and volume. Labs Test 09/16/16 11:27 White Blood Count 9.2 TH/MM3 Red Blood Count 5.10 MIL/MM3 Hemoglobin 15.6 GM/DL Hematocrit 45.2 % Mean Corpuscular Volume 88.6 FL Mean Corpuscular Hemoglobin 30.5 PG Mean Corpuscular Hemoglobin 34.5 % Concent Red Cell Distribution Width 14.6 % Platelet Count 265 TH/MM3 Mean Platelet Volume 9.2 FL Neutrophils (%) (Auto) 61.8 % Lymphocytes (%) (Auto) 28.0 % Monocytes (%) (Auto) 9.9 % Eosinophils (%) (Auto) 0.0 % Basophils (%) (Auto) 0.3 % Neutrophils # (Auto) 5.7 TH/MM3 Lymphocytes # (Auto) 2.6 TH/MM3 Monocytes # (Auto) 0.9 TH/MM3 Eosinophils # (Auto) 0.0 TH/MM3 Basophils # (Auto) 0.0 TH/MM3 CBC Comment DIFF FINAL Differential Comment Labs reviewed. ANC remains adequate for clozapine therapy Vitals/IOs Vital Signs Date Time Temp Pulse Resp B/P Pulse Ox O2 Delivery O2 Flow Rate FiO2 09/17/16 06:07 97.3 68 18 107/70 97 Assessment & Plan Problem List: (1) Schizoaffective disorder ICD Code: F25.9 (2) Post-traumatic stress disorder, chronic ICD Code: F43.12 Assessment & Plan Neurology consultation noted and appreciated. EEG ordered. I will go ahead and taper Topamax to 50 mg twice a day with ongoing goal of lessening sedation. Given that violent imagery has subsided, will transfer to 2600 unit where he may use CPAP once a bed is available. No evidence of any violence or suicidality on the unit. Continue other medications and care as ordered. Justification for Cont. Inpt. Complicating conditions, medication changes in process Discharge Planning Pending further medication changes. Request HC Surrog/Guard Advoc?: No Problem Qualifiers (1) Schizoaffective disorder: Qualified Code: F25.8 - Other schizoaffective disorders Wayne Roberson MD Sep 17, 2016 09:49
[2016-09-17 14:29] LABS: CLOZAPINE/NORCLOZAPINE TOTAL 1276 ng/mL (>450); NORCLOZAPINE 520 ng/mL (())
--- NOTE | 2016-09-17 17:22 | MG ---
cc: BERNA PÉREZ M.D. Lab No: [id number] Date: 09/17/2016 Age: Sex: M TECHNIQUE 17-channel EEG. DESCRIPTION The background rhythm reveals a symmetrical alpha rhythm, frequency of 8-10 Hz, amplitude 20-30 microvolts. During drowsiness there is mild slowing in the theta frequency. There is occasional muscle artifact present. Hyperventilation was done with a good effort with no alteration in the background rhythm. Photic stimulation results in a normal driving response. No epileptiform discharges are seen. There is some eye movement artifact. INTERPRETATION Normal EEG. MD BHUPINDER Wu/ZACKARY /5:07 PM /5:19 PM
[2016-09-17] MEDS: hydrOXYzine HCL 50 MG TAB PO PRN (17:27)
[2016-09-17 18:51] VITALS: BP 126/80; PULSE 73; RESP 17; TEMP 97.3; O2SAT 97
[2016-09-17] MEDS: TOPIRAMATE 25 MG TAB PO SCH (21:27)
[2016-09-18 05:04] VITALS: BP 104/53; PULSE 65; RESP 18; TEMP 97.3; O2SAT 98
[2016-09-18] MEDS: FLUoxetine HCL 20 MG CAP PO SCH (08:39)
[2016-09-18] MEDS: ARIPiprazole 5 MG TAB PO SCH (08:40)
[2016-09-18] MEDS: MULTIVITAMINS/MINERALS THERAPEUTIC TAB PO SCH (08:40)
[2016-09-18] MEDS: lamoTRIgine 100 MG TAB PO SCH (08:40)
[2016-09-18] MEDS: PROPRANOLOL HCL LA 120 MG CAP PO SCH ×2 (08:40→21:00)
[2016-09-18] MEDS: CHOLECALCIFEROL (VIT D3) 5000 UNIT CAP PO SCH (08:40)
[2016-09-18] MEDS: cloZAPine 100 MG TAB PO SCH ×2 (08:40→21:36)
[2016-09-18] MEDS: TOPIRAMATE 25 MG TAB PO SCH ×2 (09:00→22:18)
--- NOTE | 2016-09-18 14:54 | HHI.PYPN ---
Subjective Remarks Patient seen and examined on the 2600 unit. Chart reviewed. Case discussed with nursing staff. On my examination today, patient seems much more awake and alert. He was able to use his CPAP last night. Patient feels subjectively more alert. He does note that he had been using his CPAP continuously prior to coming into the hospital and so this change alone would not explain improvement in level of alertness since he was quite sedated when he arrived. Patient reports that voices are minimal and he has not heard from [place] at all today or yesterday. Images of violence in his head, which remain ego-dystonic, are nothing more than "annoyances" now. Denies any suicidal or homicidal ideation. Denies side effects from medications. He is thankful that we have been able to reduce his medication burden and improve his level of alertness. Review of Systems Other No physical complaints today Objective Alert: Yes [place]: Person (oriented 3) Mood: Calm Affect: Other (more full and reactive) Memory Intact: Comment (remains intact) Hallucinations: Auditory (as above. Minimal. No command auditory hallucinations.), Other (no other hallucinatory material) Delusions: No Delusion Type: Other (no delusional material) Suicidal: Ideation (denies SI) Homicidal: Ideation (denies HI) Insight/Judgement Fair Remarks Thought process linear. Speech within normal limits for rate. No motoric abnormalities noted. No ictal activity. Labs EEG findings noted. This was read as normal. Clozapine level noted. Level is more than double the threshold typically associated with clinical effect. Labs reviewed. Vitals/IOs Vital Signs Date Time Temp Pulse Resp B/P Pulse Ox O2 Delivery O2 Flow Rate FiO2 09/18/16 05:04 97.3 65 18 104/53 98 Assessment & Plan Problem List: (1) Schizoaffective disorder ICD Code: F25.9 (2) Post-traumatic stress disorder, chronic ICD Code: F43.12 Assessment & Plan Patient's psychiatric symptoms seem improved and his level of alertness is considerably improved today. I discussed with him the laboratory and EEG findings. I have asked him to consider whether he is pleased with his current level of alertness and psychiatric symptomatology or whether he would like to move forward to try to reduce the level of sedating medications. Clozapine would likely be the next logical target, and his level would suggest that there might be room for decreasing the dose somewhat, but this would also risk worsening of his psychotic symptoms. He would like to consider the matter overnight and will let me know tomorrow. Justification for Cont. Inpt. Medication changes. Complicating conditions (level of sedation, which is improving). Discharge Planning As above. Will discuss with patient tomorrow. Request HC Surrog/Guard Advoc?: No Problem Qualifiers (1) Schizoaffective disorder: Qualified Code: F25.8 - Other schizoaffective disorders Wayne Roberson MD Sep 18, 2016 14:54
[2016-09-18 18:24] VITALS: BP 128/60; PULSE 75; TEMP 97.6; O2SAT 98
[2016-09-18] MEDS: hydrOXYzine HCL 50 MG TAB PO PRN (21:37)
[2016-09-19 05:04] VITALS: BP 126/65; PULSE 70; RESP 16; TEMP 97.6; O2SAT 98
[2016-09-19] MEDS: CHOLECALCIFEROL (VIT D3) 5000 UNIT CAP PO SCH (09:00)
[2016-09-19] MEDS: TOPIRAMATE 25 MG TAB PO SCH ×2 (09:56→20:29)
[2016-09-19] MEDS: lamoTRIgine 100 MG TAB PO SCH (09:56)
[2016-09-19] MEDS: MULTIVITAMINS/MINERALS THERAPEUTIC TAB PO SCH (09:56)
[2016-09-19] MEDS: ARIPiprazole 5 MG TAB PO SCH (09:56)
[2016-09-19] MEDS: FLUoxetine HCL 20 MG CAP PO SCH (09:56)
[2016-09-19] MEDS: PROPRANOLOL HCL LA 120 MG CAP PO SCH ×2 (09:57→20:29)
[2016-09-19] MEDS: cloZAPine 100 MG TAB PO SCH ×2 (09:57→20:31)
--- NOTE | 2016-09-19 13:49 | HHI.PYPN ---
Subjective Remarks Patient seen and examined with counselor and nurse. Chart reviewed. Case discussed with nursing staff who reports patient has been no behavioral problem. On my examination today, patient is once again awake and alert with no evidence of lingering sedation. He does describe some subjective sedation still, but this is comparatively mild versus admission. He is able to participate in group activities and in fact was playing a game and winning with some peers and nursing students prior to my interview with him. Patient reports that psychiatric symptoms remain improved. He has not heard the voice of [place] and other auditory hallucinations are minimal. No imagery of violence. Denies suicidal or homicidal ideation. He has talked the matter over with his ex- and would like to remain in the hospital over the weekend with the goal of tapering other sedating medications to a minimum. We review his current medication list and decide to judiciously taper his clozapine and monitor for any exacerbation of psychiatric symptomatology. Denies side effects from medications other than mild subjective sedation. Review of Systems Other As above. Complains of pain from complex regional pain syndrome. Requests Motrin. No other physical complaints. Objective Alert: Yes (awake and alert) [place]: Person (once again oriented 3) Mood: Calm Affect: Euthymic Memory Intact: Comment (remains intact) Hallucinations: Other (as above) Delusions: No Delusion Type: Other (no delusional material in evidence) Suicidal: Ideation (denies SI) Homicidal: Ideation (denies HI) Insight/Judgement Fair Remarks Thought process linear. No motoric abnormalities noted. Patient is casually dressed and well-groomed. Steady gait and station. Labs Labs reviewed. No new labs. Vitals/IOs Vital Signs Date Time Temp Pulse Resp B/P Pulse Ox O2 Delivery O2 Flow Rate FiO2 09/19/16 05:04 97.6 70 16 126/65 98 Assessment & Plan Problem List: (1) Schizoaffective disorder ICD Code: F25.9 (2) Post-traumatic stress disorder, chronic ICD Code: F43.12 Assessment & Plan Gently taper clozapine through the weekend and monitor for any signs of psychotic decompensation. Check a CBC after the weekend. Motrin as needed for pain. Continue other psychotropics as ordered. Continue CPAP at night. Continue other medications include care as ordered. Justification for Cont. Inpt. Medication changes in process. Discharge Planning Anticipate discharge after the weekend barring some clinical worsening. Request HC Surrog/Guard Advoc?: No Problem Qualifiers (1) Schizoaffective disorder: Qualified Code: F25.8 - Other schizoaffective disorders Wayne Roberson MD Sep 19, 2016 13:48
[2016-09-19 18:46] VITALS: BP 133/79; PULSE 88; RESP 16; TEMP 98.4; O2SAT 97
[2016-09-19] MEDS: IBUPROFEN 800 MG TAB PO PRN (20:29)
[2016-09-19] MEDS ORDERED: cloZAPine 25 MG TAB PO ONE (21:00)
[2016-09-19] MEDS ORDERED: cloZAPine 100 MG TAB PO SCH (21:00)
[2016-09-20 05:50] VITALS: BP 111/58; PULSE 62; RESP 16; TEMP 96.9; O2SAT 97
[2016-09-20] MEDS: CHOLECALCIFEROL (VIT D3) 5000 UNIT CAP PO SCH (09:00)
[2016-09-20] MEDS: PROPRANOLOL HCL LA 120 MG CAP PO SCH ×2 (09:32→21:10)
[2016-09-20] MEDS: MULTIVITAMINS/MINERALS THERAPEUTIC TAB PO SCH (09:34)
[2016-09-20] MEDS: TOPIRAMATE 25 MG TAB PO SCH ×2 (09:34→21:10)
[2016-09-20] MEDS: ARIPiprazole 5 MG TAB PO SCH (09:35)
[2016-09-20] MEDS: lamoTRIgine 100 MG TAB PO SCH (09:35)
[2016-09-20] MEDS: cloZAPine 100 MG TAB PO SCH ×2 (09:35→21:10)
[2016-09-20] MEDS: FLUoxetine HCL 20 MG CAP PO SCH (09:35)
[2016-09-20] MEDS: IBUPROFEN 800 MG TAB PO PRN (12:23)
--- NOTE | 2016-09-20 15:21 | HHI.PYPN ---
Subjective Remarks Pt seen and discussed with staff. Pt reports that he is "loving" his new medication regimen and tolerating it without side effects. He reports decreased AH and denies SI/HI. He reports that mood is good. No agitation or aggression on unit. Objective Alert: Yes (awake and alert) [place]: Person, Place, Date, Situation Mood: Calm Affect: Euthymic Memory Intact: Comment (remains intact) Hallucinations: Auditory Delusions: No Delusion Type: Other (no delusional material in evidence) Suicidal: Ideation (denies SI) Homicidal: Ideation (denies HI) Insight/Judgement fair Vitals/IOs Vital Signs Date Time Temp Pulse Resp B/P Pulse Ox O2 Delivery O2 Flow Rate FiO2 09/20/16 05:50 96.9 62 16 111/58 97 Intake and Output 09/19/16 09/19/16 09/20/16 08:00 16:00 00:00 Intake Total 480 ml Balance 480 ml Assessment & Plan Problem List: (1) Schizoaffective disorder ICD Code: F25.9 (2) Post-traumatic stress disorder, chronic ICD Code: F43.12 Assessment & Plan Pt improving.Continue current tx plan. Estimated LOS: days Justification for Cont. Inpt. monitoring for safety Request HC Surrog/Guard Advoc?: No Problem Qualifiers (1) Schizoaffective disorder: Qualified Code: F25.8 - Other schizoaffective disorders Xochitl Faye MD Sep 20, 2016 15:21
[2016-09-20 18:47] VITALS: BP 133/76; PULSE 77; RESP 16; TEMP 97.5; O2SAT 96
[2016-09-21 05:27] VITALS: BP 115/74; PULSE 61; RESP 17; TEMP 98; O2SAT 96
[2016-09-21] MEDS: FLUoxetine HCL 20 MG CAP PO SCH (08:38)
[2016-09-21] MEDS: PROPRANOLOL HCL LA 120 MG CAP PO SCH ×2 (08:38→20:53)
[2016-09-21] MEDS: MULTIVITAMINS/MINERALS THERAPEUTIC TAB PO SCH (08:38)
[2016-09-21] MEDS: ARIPiprazole 5 MG TAB PO SCH (08:38)
[2016-09-21] MEDS: lamoTRIgine 100 MG TAB PO SCH (08:38)
[2016-09-21] MEDS: CHOLECALCIFEROL (VIT D3) 5000 UNIT CAP PO SCH (08:38)
[2016-09-21] MEDS: cloZAPine 100 MG TAB PO SCH ×2 (08:38→20:54)
[2016-09-21] MEDS: TOPIRAMATE 25 MG TAB PO SCH ×2 (08:38→20:53)
[2016-09-21] MEDS: IBUPROFEN 800 MG TAB PO PRN ×2 (08:39→17:29)
--- NOTE | 2016-09-21 16:06 | HHI.PYPN ---
Subjective Remarks Pt seen and discussed with staff. Pt reports that mood is good and AH are present but not as impairing. No SI/HI. He denies medication side effects. Objective Alert: Yes (awake and alert) [place]: Person, Place, Date, Situation Mood: Calm Affect: Euthymic Memory Intact: Comment (remains intact) Hallucinations: Auditory (no command, "chatter") Delusions: No Delusion Type: Other (no delusional material in evidence) Suicidal: Ideation (denies SI) Homicidal: Ideation (denies HI) Insight/Judgement poor Vitals/IOs Vital Signs Date Time Temp Pulse Resp B/P Pulse Ox O2 Delivery O2 Flow Rate FiO2 09/21/16 05:27 98.0 61 17 115/74 96 Assessment & Plan Problem List: (1) Schizoaffective disorder ICD Code: F25.9 (2) Post-traumatic stress disorder, chronic ICD Code: F43.12 Assessment & Plan Continue current tx plan. Estimated LOS: days Justification for Cont. Inpt. risk of decompensation Request HC Surrog/Guard Advoc?: No Problem Qualifiers (1) Schizoaffective disorder: Qualified Code: F25.8 - Other schizoaffective disorders Xochitl Faye MD Sep 21, 2016 16:06
[2016-09-21 18:24] VITALS: BP 136/64; PULSE 74; RESP 20; TEMP 97.4; O2SAT 98
[2016-09-22 04:57] VITALS: BP 102/60; PULSE 65; RESP 18; TEMP 98; O2SAT 98
[2016-09-22 07:16] LABS: BASOPHIL % 0.1 % (0.0-2.0); HEMATOCRIT 42.2 % (39.0-51.0); LYMPH % 33.6 % (9.0-44.0); LYMPHOCYTE # 3.1 TH/MM3 (1.0-4.8); MEAN CELL VOLUME 88.4 FL (80.0-100.0); MONO % 12.5 % (0.0-8.0); NEUT % 53.8 % (16.0-70.0); PLATELET COUNT 246 TH/MM3 (150-450); RED BLOOD COUNT 4.78 MIL/MM3 (4.50-5.90); RED CELL DISTRIBUTION WIDTH 14.2 % (11.6-17.2); WHITE BLOOD COUNT 9.3 TH/MM3 (4.0-11.0)
[2016-09-22 07:18] LABS: HEMO FLAGS AUTO DIFF
[2016-09-22] MEDS: ARIPiprazole 5 MG TAB PO SCH (08:41)
[2016-09-22] MEDS: cloZAPine 100 MG TAB PO SCH (08:41)
[2016-09-22] MEDS: FLUoxetine HCL 20 MG CAP PO SCH (08:41)
[2016-09-22] MEDS: TOPIRAMATE 25 MG TAB PO SCH (08:41)
[2016-09-22] MEDS: lamoTRIgine 100 MG TAB PO SCH (08:41)
[2016-09-22] MEDS: MULTIVITAMINS/MINERALS THERAPEUTIC TAB PO SCH (08:41)
[2016-09-22] MEDS: PROPRANOLOL HCL LA 120 MG CAP PO SCH (08:41)
[2016-09-22] MEDS: IBUPROFEN 800 MG TAB PO PRN (08:47)
[2016-09-22] MEDS: CHOLECALCIFEROL (VIT D3) 5000 UNIT CAP PO SCH (09:00)
[2016-09-22 09:35] LABS: BANDS 5 % (0-6); MYELOCYTES 2 % (0-0); NEUTROPHIL # MANUAL DIFF 4.4 TH/MM3 (1.8-7.7); POLYS (SEG NEUTROPHILS) 40 % (16-70); WBC DIFF SAMPLE 100
[2016-09-22 09:36] LABS: PLATELET ESTIMATE SMEAR NORMAL (NORMAL); PLATELET MORPHOLOGY NORMAL (NORMAL); SCAN/DIFF FINAL DIFF MANUAL
[2016-09-22] MEDS ORDERED: LAMO100 PO (14:50)
[2016-09-22] MEDS ORDERED: TOPA25TA8 PO (14:50)
[2016-09-22] MEDS ORDERED: CLOZ100 PO (14:50)
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
== END 2016-09-22 16:30 | disposition home or self-care (01) | DRG 885 ==
LOC: NEPJ 16:31 → NEDA 19:54 → H270 21:05 → H260 09-17 16:00
PROVIDERS: ADMIT Psychiatry & Neurology Psychiatry; ATTEND Psychiatry & Neurology Psychiatry
DX: F25.9 Schizoaffective disorder, unspecified (principal); G90.519 Complex regional pain syndrome I of unspecified upper limb; R45.851 Suicidal ideations; G90.50 Complex regional pain syndrome I, unspecified; F43.12 Post-traumatic stress disorder, chronic; Z91.5 Personal history of self-harm; G43.909 Migraine, unspecified, not intractable, without status migrainosus; G47.33 Obstructive sleep apnea (adult) (pediatric); M79.7 Fibromyalgia
CPT/HCPCS: 72050; 80048; 80053; 80061; 80159; 80307; 80320; 80346; 83036; 85007; 85025; 85027; 95819; 99285; G0480

== ENCOUNTER 2017-01-31 12:39 | Observation (INO) | payer MEDICARE, OTHER ==
[~2017-01-31] VITALS: Ht 182.9 cm; Wt 132.0 kg
[~2017-01-31 12:39] MED LIST: ARIP1TAB7 PO; CHOL50006 PO; CLOZ100 PO; CLOZ100T3 PO; FISH1000 PO; FLUO40CA PO; IMIT100T PO; LAMO100 PO; MULT1TAB84 PO; PROP120C PO; TOPA25TA8 PO
[2017-01-31 12:41] VITALS: BP 129/72; PULSE 48; RESP 20; TEMP 97.8; O2SAT 96
--- NOTE | 2017-01-31 13:08 | PD ---
HPI Chief Complaint: Eye Problems/Injury Time Seen by Provider: 13:08 Travel History International Travel<30 days: No Contact w/Intl Traveler<30days: No Traveled to known affect area: No History of Present Illness HPI 31-year-old male with history of migraine, asthma, schizophrenia, PTSD, presents to emergency department for evaluation. Patient reports that 2 weeks ago he began losing his vision. He states that the last 3-4 days he has had a stabbing pain at the back of both eyes "shooting into his head" and has nearly complete vision loss. He also reports nausea and vomiting. He reports that he has been walking into [place]. Patient states that he has been treated for an unknown nerve disorder. He has seen neurologists and had EMGs done. He has had MRI in the past but states has been several years. Patient has tried his propanolol and sumatriptan with no relief of his headache pain. Denies any chest pain or tightness. No difficulty breathing. No recent illnesses, fever, or chills. Patient has no other symptoms to report at this time. PFSH Past Medical History Psychiatric: Yes Respiratory: Yes (asthma) Migraines: Yes Social History Alcohol Use: No Tobacco Use: No Substance Use: No Allergies-Medications (Allergen,Severity, Reaction): Coded Allergies: Darvocet-N 100 (Verified Allergy, Unknown, 01/31/17) Gabapentin (Verified Allergy, Unknown, 01/31/17) Haldol (Verified Allergy, Unknown, 01/31/17) Reported Meds & Prescriptions Reported Meds & Active Scripts Active Topamax (Topiramate) 25 Mg Tab 50 Mg PO BID 15 Days Lamictal (Lamotrigine) 100 Mg Tab 100 Mg PO DAILY 15 Days Clozaril (Clozapine) 100 Mg Tab 400 Mg PO HS 15 Days Reported Imitrex (Sumatriptan Succinate) 100 Mg Tab 100 Mg PO ONCE PRN If a satisfactory response has not been obtained at 2 hours, a second dose may be administered Propranolol ER 24 HR (Propranolol HCl) 120 Mg Cap 120 Mg PO DAILY Multivitamin Adults (Multiple Vitamins W/ Minerals) 1 Tab 1 Tab PO DAILY Fish Oil (Hurricane-3 Fatty Acids) 1,000 Mg Cap 1 Tab PO DAILY Vitamin D (Cholecalciferol) 5,000 Unit Tab 1 Tab PO DAILY Clozapine 100 Mg Tab 100 Mg PO DAILY Fluoxetine (Fluoxetine HCl) 40 Mg Cap 40 Cap PO DAILY Abilify (Aripiprazole) 20 Mg Tab 25 Mg PO DAILY Review of Systems Except as stated in HPI: all other systems reviewed are Neg Physical Exam Narrative GENERAL: Obese male patient, ambulatory and in no acute distress. Patient did arrive by private vehicle and was able to ambulate into his room with no apparent difficulty. SKIN: Focused skin assessment warm/dry. HEAD: Atraumatic. Normocephalic. EYES: Pupils equal and round. No scleral icterus. No injection or drainage. Patient holds his eyes partially closed and reports being unable to open them, however intermittently throughout exam, patient will fully open his eyes and look directly at myself. Patient not track my finger however he is able to move his eyes in all directions without difficulty. No apparent retinal detachment. No obvious papilledema. Tonopen pressures R 14,17,18 L 16, 16,14 ENT: No nasal bleeding or discharge. Mucous membranes pink and moist. NECK: Trachea midline. No JVD. No cervical spine tenderness. No meningeal signs. CARDIOVASCULAR:Bradycardic rate and rhythm. No murmur appreciated. RESPIRATORY: No accessory muscle use. Clear to auscultation. Breath sounds equal bilaterally. GASTROINTESTINAL: Abdomen soft, non-tender, nondistended. Hepatic and splenic margins not palpable. MUSCULOSKELETAL: No obvious deformities. No clubbing. No cyanosis. No edema. Pt reports limited to no sensation in all extremities; Describes a pressure sensation to touch of extremities. NEUROLOGICAL: Awake and alert. No obvious cranial nerve deficits. Motor grossly within normal limits. Normal speech. Data Data Last Documented VS Vital Signs Date Time Temp Pulse Resp B/P Pulse Ox O2 Delivery O2 Flow Rate FiO2 01/31/17 15:25 58 16 135/58 100 Room Air 01/31/17 12:41 97.8 Orders Electrocardiogram (01/31/17 13:09) Basic Metabolic Panel (Bmp) (01/31/17 13:09) Comprehensive Metabolic Panel (01/31/17 13:09) Magnesium (Mg) (01/31/17 13:09) Act Partial Throm Time (Ptt) (01/31/17 13:09) Prothrombin Time / Inr (Pt) (01/31/17 13:09) Urinalysis - C+S If Indicated (01/31/17 13:09) Chest, Single Ap (01/31/17 13:09) Ct Brain W/O Iv Contrast(Rout) (01/31/17 13:09) Ecg Monitoring (01/31/17 13:09) Iv Access Insert/Monitor (01/31/17 13:09) Oximetry (01/31/17 13:09) Sodium Chloride 0.9% Flush (Ns Flush) (01/31/17 13:15) Sodium Chlor 0.9% 1000 Ml Inj (Ns 1000 M (01/31/17 13:09) Proparacaine 0.5% Opth Soln (Alcaine 0.5 (01/31/17 13:15) Complete Blood Count With Diff (01/31/17 14:21) Ketorolac Inj (Toradol Inj) (01/31/17 14:30) Metoclopramide Inj (Reglan Inj) (01/31/17 15:15) Diphenhydramine Inj (Benadryl Inj) (01/31/17 15:15) Admit Order (Ed Use Only) (01/31/17 15:32) Labs Laboratory Tests Test 01/31/17 01/31/17 13:25 15:00 Prothrombin Time 11.3 SEC Prothromb Time International 1.0 RATIO Ratio Activated Partial 26.4 SEC Thromboplast Time Sodium Level 140 MEQ/L Potassium Level 3.7 MEQ/L Chloride Level 108 MEQ/L Carbon Dioxide Level 22.7 MEQ/L Anion Gap 9 MEQ/L Blood Urea Nitrogen 15 MG/DL Creatinine 1.20 MG/DL Estimat Glomerular Filtration 72 ML/MIN Rate Random Glucose 96 MG/DL Calcium Level 9.2 MG/DL Magnesium Level 2.3 MG/DL Total Bilirubin 0.6 MG/DL Aspartate Amino Transf 22 U/L (AST/SGOT) Alanine Aminotransferase 54 U/L (ALT/SGPT) Alkaline Phosphatase 62 U/L Total Protein 8.1 GM/DL Albumin 4.5 GM/DL White Blood Count 10.7 TH/MM3 Red Blood Count 4.91 MIL/MM3 Hemoglobin 15.0 GM/DL Hematocrit 43.9 % Mean Corpuscular Volume 89.4 FL Mean Corpuscular Hemoglobin 30.6 PG Mean Corpuscular Hemoglobin 34.2 % Concent Red Cell Distribution Width 13.5 % Platelet Count 290 TH/MM3 Mean Platelet Volume 10.5 FL Neutrophils (%) (Auto) 71.6 % Lymphocytes (%) (Auto) 22.0 % Monocytes (%) (Auto) 6.1 % Eosinophils (%) (Auto) 0.0 % Basophils (%) (Auto) 0.3 % Neutrophils # (Auto) 7.7 TH/MM3 Lymphocytes # (Auto) 2.4 TH/MM3 Monocytes # (Auto) 0.7 TH/MM3 Eosinophils # (Auto) 0.0 TH/MM3 Basophils # (Auto) 0.0 TH/MM3 CBC Comment DIFF FINAL Differential Comment MDM Medical Decision Making Medical Screen Exam Complete: Yes Emergency Medical Condition: Yes Medical Record Reviewed: Yes Differential Diagnosis migraine headache versus electrode abnormality versus retinal detachment versus papilledema versus ocular stroke versus demyelinating process versus psychosomatic disorder Narrative Course 31-year-old male presents to emergency department for evaluation. Patient reports progressive vision loss, acutely worse last to 3 days, with a sharp stabbing pain in his eyes to his head, nausea, vomiting, unsteady gait. Patient appears without distress. He ambulates into the room without difficulty. Patient has many inconsistent findings on exam. He states he cannot see the snellen chart; he does report seeing light and dark when he is confronted on eye contact and tracking. Besides subjective reports, there are no consistent objective findings on exam at this time. Patient is treated for his headache. I have discussed the patient with my attending is also assessed the patient. Patient will need to be evaluated further for these symptoms to help determine their etiology. [id number] with Dr. Zelaya, patient admitted observation to his service for further evaluation of these symptoms. Diagnosis Primary Impression: Intractable headache Qualified Code: R51 - Intractable headache, unspecified chronicity pattern, unspecified headache type Additional Impressions: Vision loss, bilateral Nausea & vomiting Qualified Code: R11.2 - Non-intractable vomiting with nausea, unspecified vomiting type Admitting Information Admitting Physician Requests: Observation Condition: Stable Yusra Watson BRITTNEY Jan 31, 2017 13:08
[2017-01-31] MEDS ORDERED: SODIUM CHLOR 0.9% 1000 ML INJ 1,000 ML IV ONE (13:09)
[2017-01-31] MEDS ORDERED: SODIUM CHLORIDE 0.9% FLUSH 10 ML FLUSH IVF PRN (13:15)
[2017-01-31] MEDS ORDERED: PROPARACAINE HCL 0.5% OPHT SOLN 15 ML BTL EACH EYE ONE (13:15)
[2017-01-31 13:19] VITALS: BP 129/76; PULSE 52; RESP 17; O2SAT 100
--- NOTE | 2017-01-31 13:33 | RADRPT ---
EXAM DATE/TIME: 01/31/2017 13:07 [facility] COMPARISON: No previous studies available for comparison. INDICATIONS : Heart palpitations and loss of vision. MEDICAL HISTORY : Asthma SURGICAL HISTORY : None. ENCOUNTER: Initial ACUITY: 3 days PAIN SCORE: 0/10 LOCATION: Bilateral chest FINDINGS: A single view of the chest demonstrates the lungs to be symmetrically aerated without evidence of mas s, infiltrate or effusion. The cardiomediastinal contours are unremarkable. Osseous structures are intact. CONCLUSION: No acute disease. Derek Denis MD on January 31, 2017 at 13:30 Board Certified Radiologist. This report was verified electronically.
[2017-01-31 14:00] LABS: APTT (PATIENT) 26.4 SEC (24.3-30.1); PROTHROMBIN TIME - PATIENT 11.3 SEC (9.8-11.6)
--- NOTE | 2017-01-31 14:01 | RADRPT ---
EXAM DATE/TIME: 01/31/2017 13:34 [facility] COMPARISON: No previous studies available for comparison. INDICATIONS : Vision changes. RADIATION DOSE: 56.35 CTDIvol (mGy) MEDICAL HISTORY : None SURGICAL HISTORY : None. ENCOUNTER: Initial ACUITY: 1 day PAIN SCALE: 4/10 LOCATION: cranial TECHNIQUE: Multiple contiguous axial images were obtained of the head. Using automated exposure control and adj ustment of the mA and/or kV according to patient size, radiation dose was kept as low as reasonably a chievable to obtain optimal diagnostic quality images. DICOM format image data is available electro nically for review and comparison. FINDINGS: CEREBRUM: The ventricles are normal for age. No evidence of midline shift, mass lesion, hemorrhage or acute in farction. No extra-axial fluid collections are seen. POSTERIOR FOSSA: The cerebellum and brainstem are intact. The 4th ventricle is midline. The cerebellopontine angle i s unremarkable. EXTRACRANIAL: The visualized portion of the orbits is intact. SKULL: The calvaria is intact. No evidence of skull fracture. CONCLUSION: Normal examination for a patient of this age. Derek Denis MD on January 31, 2017 at 13:55 Board Certified Radiologist. This report was verified electronically.
[2017-01-31 14:07] LABS: ANION GAP 9 MEQ/L (5-15); AST (GOT) 22 U/L (15-37); BICARBONATE 22.7 MEQ/L (21.0-32.0); BLOOD UREA NITROGEN 15 MG/DL (7-18); CHLORIDE 108 MEQ/L (98-107); GLOMERULAR FILTRATION RATE 72 ML/MIN (>89); MAGNESIUM 2.3 MG/DL (1.5-2.5); POTASSIUM 3.7 MEQ/L (3.5-5.1); SODIUM (NA) 140 MEQ/L (136-145)
[2017-01-31 14:08] LABS: ALT (GPT) 54 U/L (12-78)
[2017-01-31 14:10] LABS: ALKALINE PHOSPHATASE 62 U/L (45-117); TOTAL BILIRUBIN ADULT 0.6 MG/DL (0.2-1.0)
[2017-01-31] MEDS ORDERED: KETOROLAC TROMETHAMINE 30 MG/ML (IVP) VIAL IV PUSH ONE (14:30)
[2017-01-31] MEDS ORDERED: METOCLOPRAMIDE HCL 10 MG/2 ML VIAL IV PUSH ONE (15:15)
[2017-01-31] MEDS ORDERED: diphenhydrAMINE HCL 50 MG/ML VIAL IV PUSH ONE (15:15)
[2017-01-31 15:25] VITALS: BP 135/58; PULSE 58; RESP 16; O2SAT 100
[2017-01-31 15:25] LABS: AUTOMATED NEUTROPHIL # 7.7 TH/MM3 (1.8-7.7); BASOPHIL % 0.3 % (0.0-2.0); HEMATOCRIT 43.9 % (39.0-51.0); HEMO FLAGS DIFF FINAL; LYMPHOCYTE # 2.4 TH/MM3 (1.0-4.8); MEAN CELL VOLUME 89.4 FL (80.0-100.0); MEAN CORPUSCULAR HEMOGLOBIN 30.6 PG (27.0-34.0); MEAN CORPUSCULAR HGB CONC 34.2 % (32.0-36.0); MONO % 6.1 % (0.0-8.0); NEUT % 71.6 % (16.0-70.0); PLATELET COUNT 290 TH/MM3 (150-450); RED BLOOD COUNT 4.91 MIL/MM3 (4.50-5.90); RED CELL DISTRIBUTION WIDTH 13.5 % (11.6-17.2); WHITE BLOOD COUNT 10.7 TH/MM3 (4.0-11.0)
--- NOTE | 2017-01-31 17:07 | HHI.HP ---
HPI Service [facility] Hospitalists Primary Care Physician Edmar Lawrence MD Admission Diagnosis intractable headache; vision changes; unsteady gait Chief Complaint: vision change h/a Travel History International Travel<30 Days: No Contact w/Intl Traveler <30 Da: No Traveled to Known Affected Are: No History of Present Illness Pt with ptsd, shizoaffective d/o, chronic pain and "complex regional pain by hx " but I'm not sure how accurate this diagnosis really is or even who made the diagnosis. He was recently in the psychiatric unit apparently admitted for hearing voices and visions of him killing others. Apparently the voice calls itself Salizar. But now the pt presents to the ED complaining of blurry vision x about 10 days then over past 3-4 days progressive tunneling of vision and essential loss. Says he really can't see much light and even shadows. C/O recent headaches initially in back of head then behind the eyes. No fever but admits to some n/v. Says his gait is abnormal and running into [place] but of course he claims vision loss. denies head trauma, travel, recent infections. no hx syphillis or hiv. denies any insect bites. says he has migraine hx and did have alot of h/a before the onset. ct brain in ED negative. Review of Systems Other vision loss h/a leg weakness n/v Past Family Social History Past Medical History migraine complex regional pain syndrome per hx depression ptsd schizoaffective d/o ulnar nerve transplants bilaterally. Reported Medications Reported Meds & Active Scripts Active Topamax (Topiramate) 25 Mg Tab 50 Mg PO BID 15 Days Lamictal (Lamotrigine) 100 Mg Tab 100 Mg PO DAILY 15 Days Clozaril (Clozapine) 100 Mg Tab 400 Mg PO HS 15 Days Reported Imitrex (Sumatriptan Succinate) 100 Mg Tab 100 Mg PO ONCE PRN If a satisfactory response has not been obtained at 2 hours, a second dose may be administered Propranolol ER 24 HR (Propranolol HCl) 120 Mg Cap 120 Mg PO DAILY Multivitamin Adults (Multiple Vitamins W/ Minerals) 1 Tab 1 Tab PO DAILY Fish Oil ([place]-3 Fatty Acids) 1,000 Mg Cap 1 Tab PO DAILY Vitamin D (Cholecalciferol) 5,000 Unit Tab 1 Tab PO DAILY Clozapine 100 Mg Tab 100 Mg PO DAILY Fluoxetine (Fluoxetine HCl) 40 Mg Cap 40 Cap PO DAILY Abilify (Aripiprazole) 20 Mg Tab 25 Mg PO DAILY Allergies: Coded Allergies: Darvocet-N 100 (Verified Allergy, Unknown, 01/31/17) Gabapentin (Verified Allergy, Unknown, 01/31/17) Haldol (Verified Allergy, Unknown, 01/31/17) Family History nc Social History no etoh/tob Physical Exam Vital Signs lying flat in bed completely oriented/nad staring straight ahead, no photophobia no blinking, even with waving hand toward his eyes. no conjunctivitis. eom intact unable to see fingers in front of face ext hyperreflexic knee jerk. no clonus no babinski.. moves arm well w/out clumsiness Vital Signs Date Time Temp Pulse Resp B/P Pulse Ox O2 Delivery O2 Flow Rate FiO2 01/31/17 15:25 58 16 135/58 100 Room Air 01/31/17 13:19 52 17 129/76 100 Room Air 01/31/17 12:41 97.8 48 20 129/72 96 Room Air Laboratory Laboratory Tests Test 01/31/17 01/31/17 13:25 15:00 Prothrombin Time 11.3 Prothromb Time International 1.0 Ratio Activated Partial 26.4 Thromboplast Time Sodium Level 140 Potassium Level 3.7 Chloride Level 108 Carbon Dioxide Level 22.7 Anion Gap 9 Blood Urea Nitrogen 15 Creatinine 1.20 Estimat Glomerular Filtration 72 Rate Random Glucose 96 Calcium Level 9.2 Magnesium Level 2.3 Total Bilirubin 0.6 Aspartate Amino Transf 22 (AST/SGOT) Alanine Aminotransferase 54 (ALT/SGPT) Alkaline Phosphatase 62 Total Protein 8.1 Albumin 4.5 White Blood Count 10.7 Red Blood Count 4.91 Hemoglobin 15.0 Hematocrit 43.9 Mean Corpuscular Volume 89.4 Mean Corpuscular Hemoglobin 30.6 Mean Corpuscular Hemoglobin 34.2 Concent Red Cell Distribution Width 13.5 Platelet Count 290 Mean Platelet Volume 10.5 Neutrophils (%) (Auto) 71.6 Lymphocytes (%) (Auto) 22.0 Monocytes (%) (Auto) 6.1 Eosinophils (%) (Auto) 0.0 Basophils (%) (Auto) 0.3 Neutrophils # (Auto) 7.7 Lymphocytes # (Auto) 2.4 Monocytes # (Auto) 0.7 Eosinophils # (Auto) 0.0 Basophils # (Auto) 0.0 CBC Comment DIFF FINAL Differential Comment Result Diagram: 01/31/17 1500 01/31/17 1325 Assessment and Plan Problem List: (1) Vision loss, bilateral Status: Acute Plan: Pt with ptsd, shizoaffective d/o, chronic pain and "complex regional pain by hx" but I'm not sure how accurate this diagnosis really is or even who made the diagnosis. He was recentlyz(September) in the psychiatric unit apparently admitted for hearing voices and visions of him killing others. Apparently the voice calls itself Salizar. Druing that stay his lamictal was increased. But now the pt presents to the ED complaining of blurry vision x about 10 days then over past 3-4 days progressive tunneling of vision and essential loss. Says he really can't see much light and even shadows. C/O recent headaches initially in back of head then behind the eyes. No fever but admits to some n/v. Says his gait is abnormal and running into [place] but of course he claims vision loss. denies head trauma, travel, recent infections. no hx syphillis or hiv. denies any insect bites. says he has migraine hx and did have alot of h/a before the onset. ct brain in ED negative. neurology consult esr stat. rpr check. mri brain and c spine antiemetics prn dvt prophylaxis if unable to find medical reason will likely consult psychiatry to eval for psych causes or medication addendum: pt says his GF had MS. so optic neuritis should be considered. (2) Nausea & vomiting Status: Acute Plan: see above (3) Migraine Status: Chronic (4) Chronic pain Status: Chronic (5) Post-traumatic stress disorder, chronic Status: Chronic (6) Schizoaffective disorder Status: Chronic Problem Qualifiers (1) Nausea & vomiting: Qualified Code: R11.2 - Non-intractable vomiting with nausea, unspecified vomiting type Christiano Ramos MD Jan 31, 2017 17:07 Christiano Ramos MD Jan 31, 2017 17:07
[2017-01-31] MEDS ORDERED: ACETAMINOPHEN 325 MG TAB PO PRN (17:15)
[2017-01-31] MEDS ORDERED: ONDANSETRON HCL 4 MG/2 ML VIAL IV PUSH PRN (17:15)
[2017-01-31] MEDS ORDERED: hydrOXYzine PAMOATE 25 MG CAP PO PRN (17:15)
[2017-01-31] MEDS ORDERED: SUMAtriptan SUCCINATE 50 MG TAB PO PRN (17:15)
[2017-01-31 18:00] VITALS: BP 127/67; PULSE 56; RESP 20; TEMP 98
[2017-01-31] MEDS ORDERED: GADODIAMIDE PF 287 MG/ML 20 ML VIAL (for RAD MRI) IV ONE (18:04)
--- NOTE | 2017-01-31 18:09 | RADRPT ---
EXAM DATE/TIME: 01/31/2017 17:32 [facility] COMPARISON: No previous studies available for comparison. INDICATIONS : Unsteady gait. MEDICAL HISTORY : None. SURGICAL HISTORY : Ulnar tendon release. ENCOUNTER: Initial ACUITY: 1 day PAIN SCORE: 0/10 LOCATION: Paraspinal TECHNIQUE: Multiplanar, multisequence MRI examination of the cervical spine was performed. FINDINGS: VERTEBRAE: Normal vertebral body height. Homogeneous marrow signal. ALIGNMENT: No evidence of subluxation. CORD: Normal configuration and signal. POST FOSSA: The cerebellar tonsils are normal in position. C2-C3: The thecal sac has a normal configuration. There is no evidence of disc herniation or spinal canal s tenosis. The neural foramina are patent bilaterally. C3-C4: The thecal sac has a normal configuration. There is no evidence of disc herniation or spinal canal s tenosis. The neural foramina are patent bilaterally. C4-C5: The thecal sac has a normal configuration. There is no evidence of disc herniation or spinal canal s tenosis. The neural foramina are patent bilaterally. C5-C6: The thecal sac has a normal configuration. There is no evidence of disc herniation or spinal canal s tenosis. The neural foramina are patent bilaterally. C6-C7: The thecal sac has a normal configuration. There is no evidence of disc herniation or spinal canal s tenosis. The neural foramina are patent bilaterally. C7-T1: The thecal sac has a normal configuration. There is no evidence of disc herniation or spinal canal s tenosis. The neural foramina are patent bilaterally. CONCLUSION: Normal examination. Yoni Gardiner MD on January 31, 2017 at 18:04 Board Certified Radiologist. This report was verified electronically.
--- NOTE | 2017-01-31 18:13 | RADRPT ---
EXAM DATE/TIME: 01/31/2017 17:32 [facility] COMPARISON: No previous studies available for comparison. INDICATIONS : Unsteady gait. Visual changes. CONTRAST: 20 cc Omniscan (gadodiamide) IV MEDICAL HISTORY : None. SURGICAL HISTORY : Ulnar tendon release. ENCOUNTER: Initial ACUITY: 1 day PAIN SCORE: 0/10 LOCATION: cranial TECHNIQUE: Multiplanar, multisequence MRI of the brain was performed both prior to and following the administrat ion of paramagnetic contrast. FINDINGS: CEREBRUM: The ventricles are normal for age. No evidence of midline shift, mass lesion, hemorrhage or acute in farction. No extraaxial fluid collections are seen. The pituitary gland and suprasellar cistern are normal in configuration. WHITE MATTER: No significant signal abnormalities are seen in the white matter. POSTERIOR FOSSA: The cerebellum and brainstem are intact. The 4th ventricle is midline. The cerebellopontine angle is unremarkable. The cerebellar tonsils are normal in position. DIFFUSION IMAGING: No focal areas of restricted diffusion are seen. No evidence of acute infarction. EXTRACRANIAL: The visualized portions of the orbits and paranasal sinuses are unremarkable. POST-CONTRAST: No abnormal areas of parenchymal or dural enhancement. No evidence of blood-brain barrier breakdown. CONCLUSION: Normal examination for a patient of this age. Derek Denis MD on January 31, 2017 at 18:07 Board Certified Radiologist. This report was verified electronically.
[2017-01-31] MEDS: cloZAPine 100 MG TAB PO SCH (21:23)
[2017-01-31] MEDS: TOPIRAMATE 25 MG TAB PO SCH (21:23)
[2017-01-31 22:12] VITALS: BP 105/68; PULSE 71; RESP 18; TEMP 98.5; O2SAT 92
[2017-01-31 23:46] VITALS: BP 90/55; PULSE 74; RESP 18; TEMP 98.1; O2SAT 91
[2017-02-01 04:24] VITALS: BP 107/55; PULSE 73; RESP 18; TEMP 98.4; O2SAT 97
[2017-02-01 08:13] VITALS: BP 120/56; PULSE 80; RESP 20; TEMP 97.9; O2SAT 98
[2017-02-01] MEDS ORDERED: NON-FORMULARY DRUG (Omega-3 Fatty Acids (Fish Oil) 1 TAB) PO SCH (09:00)
[2017-02-01] MEDS: cloZAPine 100 MG TAB PO SCH ×2 (10:02→21:00)
[2017-02-01] MEDS: ARIPiprazole 5 MG TAB PO SCH (10:02)
[2017-02-01] MEDS: CHOLECALCIFEROL (VIT D3) 5000 UNIT CAP PO SCH (10:03)
[2017-02-01] MEDS: lamoTRIgine 100 MG TAB PO SCH (10:03)
[2017-02-01] MEDS: PROPRANOLOL HCL LA 120 MG CAP PO SCH (10:03)
[2017-02-01] MEDS: FLUoxetine HCL 20 MG CAP PO SCH (10:03)
[2017-02-01] MEDS: MULTIVITAMINS/MINERALS THERAPEUTIC TAB PO SCH (10:03)
--- NOTE | 2017-02-01 10:28 | HHI.PR ---
Subjective Remarks still with vision loss Objective Vitals eyes closed . some sclera injection. pupils small. heart reg lung cta abd s/nt ext no edema Vital Signs Date Time Temp Pulse Resp B/P Pulse Ox O2 Delivery O2 Flow Rate FiO2 02/01/17 08:13 97.9 80 20 120/56 98 02/01/17 04:24 98.4 73 18 107/55 97 01/31/17 23:46 98.1 74 18 90/55 91 01/31/17 22:12 98.5 71 18 105/68 92 01/31/17 18:00 98.0 56 20 127/67 01/31/17 15:25 58 16 135/58 100 Room Air 01/31/17 13:19 52 17 129/76 100 Room Air 01/31/17 12:41 97.8 48 20 129/72 96 Room Air Result Diagram: 01/31/17 1500 01/31/17 1325 A/P Problem List: (1) Vision loss, bilateral Status: Acute Plan: Pt with ptsd, shizoaffective d/o, chronic pain and "complex regional pain by hx" but I'm not sure how accurate this diagnosis really is or even who made the diagnosis. He was recentlyz(September) in the psychiatric unit apparently admitted for hearing voices and visions of him killing others. Apparently the voice calls itself Salizar. Druing that stay his lamictal increased. But now the pt presents to the ED complaining of blurry vision x about 10 days then over past 3-4 days progressive tunneling of vision and essential loss. Says he really can't see much light and even shadows. C/O recent headaches initially in back of head then behind the eyes. No fever but admits to some n/v. Says his gait is abnormal and running into [place] but of course he claims vision loss. denies head trauma, travel, recent infections. no hx syphillis or hiv. denies any insect bites. says he has migraine hx and did have alot of h/a before the onset. ct brain in ED negative. ED performed fundoscopic exam. -MRI w, w/o contrast brain and MRI c spine negative. -ESR nml neurology consulted will give iv solumedrol x 1 now and discuss with neurology. ?optic neuritis. addendum: spoke to neuro who also feels pt sx's are psych related..but he ordered optho and eeg. f/u rpr antiemetics prn dvt prophylaxis psychiatry consulted to review psych issues/meds. (2) Nausea & vomiting Status: Acute Plan: see above (3) Migraine Status: Chronic (4) Chronic pain Status: Chronic (5) Post-traumatic stress disorder, chronic Status: Chronic (6) Schizoaffective disorder Status: Chronic Problem Qualifiers (1) Nausea & vomiting: Qualified Code: R11.2 - Non-intractable vomiting with nausea, unspecified vomiting type Christiano Ramos MD Feb 01, 2017 10:28
[2017-02-01] MEDS ORDERED: methylPREDNISolone SOD SUCC 125 MG/2 ML VIAL IV PUSH ONE (11:00)
[2017-02-01] MEDS: TOPIRAMATE 25 MG TAB PO SCH ×2 (12:23→21:00)
--- NOTE | 2017-02-01 13:17 | EKG ---
Date Performed: 01/31/2017 Time Performed: 13:33:25 PTAGE: 31 years EKG: SINUS BRADYCARDIA BORDERLINE ECG NO PREVIOUS TRACING DOCTOR: Mellisa Negro Interpretating Date/Time 02/01/2017 13:17:24
--- NOTE | 2017-02-01 15:10 | MB ---
cc: CATRACHITO YOO M.D. DATE OF CONSULTATION: 02/01/2017. HISTORY OF PRESENT ILLNESS: He is a 31-year-old seen in neurological evaluation in regards to head pain, visual loss. The symptoms have been going on for about two weeks. There was some waxing and waning and about a week or so ago the symptoms became more pronounced. He describes bilateral parietal region pain and he feels he lost his vision. He has a history of a psychiatric disorder including PTSD and schizoaffective disorder. History of chronic pain. Recent delusions / hallucinations and he is under psychiatric care. He is vague describing the visual loss. He describes that it happened all of a sudden. MEDICATIONS: His medications include: 1. Imitrex. 2. Propranolol. 3. Clozapine 100 milligrams daily. 4. Fluoxetine 40 milligrams daily. 5. Abilify 20 milligrams daily. 6. Topamax 25 milligrams twice a day. 7. Lamictal 100 milligrams daily. SOCIAL HISTORY: He denies alcohol. No smoking. He describes disability from his mental illness and he lives with his girlfriend. NEUROLOGICAL EXAMINATION: The neurologic exam shows the patient to be awake, flat affect, somewhat slow at times to respond. He will not established eye contact. He maintained his eyes closed. When I opened his eyes, the pupils were about same size and reactive. I could not see the disks well. He did gaze in all direction and at times his gaze appeared somewhat bizarre. There is no facial asymmetry. The speech was mildly slow and minimally dysarthric. The patient was actually oriented and provided background information in a somewhat limited manner but appropriately. He talked about his 7-month-old baby. His reflexes were 1+, plantar responses were flexor. The left ankle reflex is possibly diminished. Overall there is a mild reduction of facial expression. IMAGING STUDIES: The patient has had MRI brain, MRI cervical spine and CT brain studies, which were normal. LABORATORY DATA: Sedimentation rate was normal at 8. CBC is normal. Chemistries essentially normal. ASSESSMENT: A two-week history of headaches and visual loss. I am not certain about the explanation for his symptomatology and initially I am questioning whether or not his symptoms are all from a psychosomatic nature. The eye exam is somewhat limited but really not clearly compatible with the history. The MRI brain was normal. I asked the nursing staff to arrange for an ophthalmological evaluation as well. I discussed the case with the physician caring for him, Dr. Ramos. A dose of Solu-Medrol was given once and I am not enthusiastic about continuing this. Psychiatric consultation has also in order. I am going to request an EEG. I will follow the neurological course. Thank you for asking us to assist in his care. MD CHEO Reyna/JAME /12:42 PM /3:03 PM
[2017-02-01 16:18] VITALS: BP 122/60; PULSE 62; RESP 20; TEMP 97.8; O2SAT 95
[2017-02-01 19:25] LABS: BLOOD, URINE NEG (NEG); COMMENT (UR) CULT NOT INDICATED; CULTURE IF INDICATED CULT NOT INDICATED; GLUCOSE,URINE NEG (NEG); KETONE, URINE TRACE mg/dL (NEG); NITRITE,URINE NEG (NEG); PH, URINE 8.5 (5.0-8.5); URINE COLOR YELLOW (YELLW/STRAW)
[2017-02-01 20:00] VITALS: BP 126/70; PULSE 75; RESP 20; TEMP 96.4; O2SAT 91
[2017-02-02 03:43] VITALS: BP 128/68; PULSE 72; RESP 20; TEMP 97.6; O2SAT 95
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
--- NOTE | 2017-02-02 07:16 | MG ---
cc: CATRACHITO YOO M.D. Lab No: Date: 02/01/2017 Age: 31 Sex: M Race: REASON FOR PROCEDURE An EEG was obtained on this 31-year-old patient with history of inability to stay awake, migraines. Also history of visual loss. MEDICATIONS 1. Abilify. 2. Prozac. 3. Lamictal. 4. Clozaril. 5. Inderal. FINDINGS The patient is described as awake and asleep. The EEG shows asleep features frequently with beta activity frontally, theta and delta rhythms. There are some sleepy spindles. The patient awakens for a brief period of time and there are alpha background rhythms. Photic stimulation showed some probable driving response bilaterally though the patient is excessively drowsy for the procedure to be more informative. INTERPRETATION Probably normal asleep EEG. No epileptiform features present. MD CHEO Reyna/LUI /7:56 PM /7:15 AM
[2017-02-02 08:05] VITALS: BP 129/73; PULSE 73; RESP 16; TEMP 97.8; O2SAT 98
--- NOTE | 2017-02-02 10:04 | HHI.PR ---
Subjective Remarks Pt reports that his symptoms are unchanged. He appears to be moving all 4 extremities without difficulty during conversation but then when examined he has weakness in all 4 extremities Pt keeps his eyes closed during the entire interview and examination. Nurse reports that he has been up to the bedside commode to use the bathroom Objective Vitals Vital Signs Date Time Temp Pulse Resp B/P Pulse Ox O2 Delivery O2 Flow Rate FiO2 02/02/17 08:05 97.8 73 16 129/73 98 02/02/17 03:43 97.6 72 20 128/68 95 02/01/17 20:00 96.4 75 20 126/70 91 02/01/17 16:18 97.8 62 20 122/60 95 Result Diagram: 01/31/17 1500 01/31/17 1325 Other Results Laboratory Tests Test 01/31/17 01/31/17 02/01/17 13:25 15:00 18:00 Prothrombin Time 11.3 SEC Prothromb Time International 1.0 RATIO Ratio Activated Partial 26.4 SEC Thromboplast Time Sodium Level 140 MEQ/L Potassium Level 3.7 MEQ/L Chloride Level 108 MEQ/L Carbon Dioxide Level 22.7 MEQ/L Anion Gap 9 MEQ/L Blood Urea Nitrogen 15 MG/DL Creatinine 1.20 MG/DL Estimat Glomerular Filtration 72 ML/MIN Rate Random Glucose 96 MG/DL Calcium Level 9.2 MG/DL Magnesium Level 2.3 MG/DL Total Bilirubin 0.6 MG/DL Aspartate Amino Transf 22 U/L (AST/SGOT) Alanine Aminotransferase 54 U/L (ALT/SGPT) Alkaline Phosphatase 62 U/L Total Protein 8.1 GM/DL Albumin 4.5 GM/DL White Blood Count 10.7 TH/MM3 Red Blood Count 4.91 MIL/MM3 Hemoglobin 15.0 GM/DL Hematocrit 43.9 % Mean Corpuscular Volume 89.4 FL Mean Corpuscular Hemoglobin 30.6 PG Mean Corpuscular Hemoglobin 34.2 % Concent Red Cell Distribution Width 13.5 % Platelet Count 290 TH/MM3 Mean Platelet Volume 10.5 FL Neutrophils (%) (Auto) 71.6 % Lymphocytes (%) (Auto) 22.0 % Monocytes (%) (Auto) 6.1 % Eosinophils (%) (Auto) 0.0 % Basophils (%) (Auto) 0.3 % Neutrophils # (Auto) 7.7 TH/MM3 Lymphocytes # (Auto) 2.4 TH/MM3 Monocytes # (Auto) 0.7 TH/MM3 Eosinophils # (Auto) 0.0 TH/MM3 Basophils # (Auto) 0.0 TH/MM3 CBC Comment DIFF FINAL Differential Comment Erythrocyte Sedimentation Rate 8 mm/hr Urine Color YELLOW Urine Turbidity CLOUDY Urine pH 8.5 Urine Specific [place] 1.021 Urine Protein TRACE mg/dL Urine Glucose (UA) NEG mg/dL Urine Ketones TRACE mg/dL Urine Occult Blood NEG Urine Nitrite NEG Urine Bilirubin NEG Urine Urobilinogen LESS THAN 2.0 MG/DL Urine Leukocyte Esterase NEG Urine Amorphous Sediment RARE Microscopic Urinalysis Comment CULT NOT INDICATED Imaging Last Impressions Head CT 01/31/17 1309 Signed Impressions: Service Date/Time: Tuesday, January 31, 2017 13:34 - CONCLUSION: Normal examination for a patient of this age. Derek Denis MD Chest X-Ray 01/31/17 1309 Signed Impressions: Service Date/Time: Tuesday, January 31, 2017 13:07 - CONCLUSION: No acute disease. Derek Denis MD Cervical Spine MRI 01/31/17 0000 Signed Impressions: Service Date/Time: Tuesday, January 31, 2017 17:32 - CONCLUSION: Normal examination. Yoni Gardiner MD Brain MRI 01/31/17 0000 Signed Impressions: Service Date/Time: Tuesday, January 31, 2017 17:32 - CONCLUSION: Normal examination for a patient of this age. Derek Denis MD Objective Remarks General: NAD, alert and oriented Chest: CTA Cardiac: Regular Abd: +BS, soft ND/NT Ext: No edema Neuro: Moves all four extremities without difficulty but then when asked to test strength of the upper and lower extremities he appears to have a great deal of difficulty A/P Problem List: (1) Vision loss, bilateral Status: Acute Plan: - Pt is a 31 y/o with PTSD, Schizoaffective d/o, chronic pain and "complex regional pain by hx" but I'm not sure how accurate this diagnosis really is or even who made the diagnosis. - He was recently (September) in the psychiatric unit apparently admitted for hearing voices and visions of him killing others. Apparently the voice calls itself Chambers. During that stay his Lamictal was increased. - Pt presented to the ED complaining of blurry vision x about 10 days then over past 3-4 days progressive tunneling of vision and essential loss. Says he really can't see much light and even shadows. Complains of recent headaches initially in back of head then behind the eyes. No fever but admits to some nausea/vomiting. - Pt reports that his gait is abnormal and he has been running into [place] but of course he claims vision loss. - Denies head trauma, travel, recent infections. No hx of syphilis or HIV. Denies any insect bites. - He says he has hx of migraine DOUGLAS and did have a lot of h/a before the onset of the vision loss. - CT Head in ED negative. - ED performed funduscopic exam. - MRI with and W/O contrast brain and MRI C-spine negative. - ESR nml - Neurology consulted - Pt was given IV Solu-Medrol x 1 yesterday. - Neurology felt that this may be more psych related, but he ordered ophthalmology evaluation and EEG. - Psychiatry evaluated him and felt that his psychiatric issues were stable. - EEG was negative. - RPR is pending. - Antiemetics PRN - There is no Service Architect correctional counselor/case manager for [facility] until 02/04/17. Dr. Espinal spoke with Dr. Cain this morning and he recommended that the patient followup outpt this afternoon for evaluation. - According to psychiatry, pt does not meet Howell Act criteria for admission to psychiatric unit at this time. - We discussed with the pt that there does not seem to be any physiological cause for this bilateral blindness and it is felt that most likely this is psychosomatic. - We offered the pt to be discharged to go to psychiatry or to be discharged home but is to go to the shop clerk today upon discharge. - After speaking with the patients girlfriend at bedside and again with the pt he is agreeable to transfer to psychiatric unit for further evaluation. - Patient is stable from a medical standpoint for discharge to psych. - Dr. Cain and Dr. Stinson were made aware of the patients choice to voluntarily be admitted to psychiatry for further workup - He will need to be seen by Ophthalmology after discharge from the psychiatric unit - He will need to f/u with [facility] psychiatry following his admission to psych and with his PCP, Dr. Ford. (2) Nausea & vomiting Status: Acute Plan: - See above (3) Migraine Status: Chronic (4) Chronic pain Status: Chronic (5) Post-traumatic stress disorder, chronic Status: Chronic (6) Schizoaffective disorder Status: Chronic Assessment and Plan Patient examined. Assessment and plan formulated with Bernice Grande PA-C. I agree with the above. Problem Qualifiers (1) Nausea & vomiting: Qualified Code: R11.2 - Non-intractable vomiting with nausea, unspecified vomiting type Bernice Grande Feb 02, 2017 10:04 Will Espinal DO Feb 08, 2017 10:03
[2017-02-02] MEDS: ARIPiprazole 5 MG TAB PO SCH (10:20)
[2017-02-02] MEDS: TOPIRAMATE 25 MG TAB PO SCH (10:20)
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
[2017-02-02] MEDS: FLUoxetine HCL 20 MG CAP PO SCH (10:21)
[2017-02-02] MEDS: CHOLECALCIFEROL (VIT D3) 5000 UNIT CAP PO SCH (10:21)
[2017-02-02] MEDS: PROPRANOLOL HCL LA 120 MG CAP PO SCH (10:21)
[2017-02-02] MEDS: cloZAPine 100 MG TAB PO SCH (10:21)
[2017-02-02] MEDS: MULTIVITAMINS/MINERALS THERAPEUTIC TAB PO SCH (10:21)
[2017-02-02] MEDS: lamoTRIgine 100 MG TAB PO SCH (10:21)
[2017-02-02 12:41] VITALS: BP 123/78; PULSE 53; RESP 20; TEMP 98.3; O2SAT 94
== END 2017-02-02 15:09 | disposition home or self-care (01) ==
LOC: NEPC 12:39 → NEDA 15:35 → NEPFCDU 17:16
PROVIDERS: ADMIT Hospitalist; ATTEND Hospitalist
DX: H54.0 Blindness, both eyes (principal); R11.2 Nausea with vomiting, unspecified; F22 Delusional disorders; R47.1 Dysarthria and anarthria; F60.3 Borderline personality disorder; F34.1 Dysthymic disorder; R00.1 Bradycardia, unspecified; R00.2 Palpitations; R26.81 Unsteadiness on feet; G43.909 Migraine, unspecified, not intractable, without status migrainosus; J45.909 Unspecified asthma, uncomplicated; G89.29 Other chronic pain; F43.12 Post-traumatic stress disorder, chronic; F25.9 Schizoaffective disorder, unspecified; F32.9 Major depressive disorder, single episode, unspecified; Z79.899 Other long term (current) drug therapy
CPT/HCPCS: 70450; 70553; 71010; 72141; 80053; 81001; 83735; 85025; 85610; 85652; 85730; 86592; 93005; 95819; 96374; 96375; 97162; 99285; A9579; G0378; G8987; G8988; J1200; J1885; J2765; J2930; J7030

== ENCOUNTER 2017-02-02 15:20 | Inpatient (IN) | payer MEDICARE, OTHER ==
[~2017-02-02] VITALS: Ht 182.9 cm; Wt 133.6 kg
[2017-02-02 15:45] VITALS: BP 127/80; PULSE 66; RESP 16; TEMP 97.5; O2SAT 96
[2017-02-02] MEDS ORDERED: LORazepam 2 MG/ML VIAL IM PRN ×2 (16:00→23:45)
[2017-02-02] MEDS ORDERED: ALUMINUM/MAGNESIUM/SIMETH 30 ML CUP PO PRN (16:00)
[2017-02-02] MEDS ORDERED: LORazepam 1 MG TAB PO PRN ×2 (16:00→23:45)
[2017-02-02] MEDS ORDERED: MAGNESIUM HYDROXIDE SUSP 30 ML CUP PO PRN (16:00)
[2017-02-02] MEDS ORDERED: PILL SPLITTER OTHER PRN (16:00)
[2017-02-02] MEDS: ACETAMINOPHEN 325 MG TAB PO PRN (18:10)
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
[2017-02-02] MEDS: REMOVE OLD NICOTINE PATCH T-DERMAL SCH (20:44)
[2017-02-02] MEDS: cloZAPine 100 MG TAB PO SCH (20:58)
[2017-02-02] MEDS ORDERED: TOPIRAMATE 100 MG TAB PO SCH (21:00)
[2017-02-03 06:05] VITALS: BP 125/59; PULSE 65; RESP 18; TEMP 97.7; O2SAT 98
[2017-02-03 07:22] LABS: ANION GAP 9 MEQ/L (5-15); BICARBONATE 23.6 MEQ/L (21.0-32.0); BLOOD UREA NITROGEN 20 MG/DL (7-18); CHLORIDE 111 MEQ/L (98-107); GLOMERULAR FILTRATION RATE 80 ML/MIN (>89); POTASSIUM 3.5 MEQ/L (3.5-5.1); SODIUM (NA) 144 MEQ/L (136-145)
[2017-02-03 07:24] LABS: HDL CHOLESTEROL 42.1 MG/DL (40.0-60.0); LDL CHOLESTEROL 70 MG/DL (0-99)
[2017-02-03] MEDS ORDERED: TOPIRAMATE 25 MG TAB PO SCH ×2 (09:00→21:00)
[2017-02-03] MEDS: NICOTINE 21 MG/24 HR PATCH T-DERMAL SCH (09:00)
[2017-02-03] MEDS: FLUoxetine HCL 20 MG CAP PO SCH (09:53)
[2017-02-03] MEDS: lamoTRIgine 100 MG TAB PO SCH (09:54)
[2017-02-03] MEDS: MULTIVITAMINS/MINERALS THERAPEUTIC TAB PO SCH (09:54)
[2017-02-03] MEDS: ARIPiprazole 10 MG TAB PO SCH (09:54)
[2017-02-03] MEDS: cloZAPine 100 MG TAB PO SCH ×3 (09:54→21:00)
[2017-02-03] MEDS: PROPRANOLOL HCL LA 120 MG CAP PO SCH (09:54)
[2017-02-03] MEDS: CHOLECALCIFEROL (VIT D3) 5000 UNIT CAP PO SCH (09:54)
[2017-02-03] MEDS: SUMAtriptan SUCCINATE 50 MG TAB PO PRN (09:59)
[2017-02-03 15:59] VITALS: BP 136/74; PULSE 70; RESP 18; TEMP 97.3; O2SAT 97
[2017-02-03 19:20] LABS: HEMOGLOBIN A1a 1.3 %; HEMOGLOBIN A1b 1.8 %; HEMOGLOBIN Ao 86.6 %; HEMOGLOBIN LA1C 1.5 %; HEMOGLOBIN P3 3.3 %
[2017-02-03] MEDS: REMOVE OLD NICOTINE PATCH T-DERMAL SCH (20:51)
[2017-02-04 06:06] VITALS: BP 116/67; PULSE 65; RESP 20; TEMP 98.3; O2SAT 98
[2017-02-04] MEDS: FLUoxetine HCL 20 MG CAP PO SCH (09:00)
[2017-02-04] MEDS: NICOTINE 21 MG/24 HR PATCH T-DERMAL SCH (09:00)
[2017-02-04] MEDS: lamoTRIgine 100 MG TAB PO SCH (09:00)
[2017-02-04] MEDS: MULTIVITAMINS/MINERALS THERAPEUTIC TAB PO SCH (09:00)
[2017-02-04] MEDS: cloZAPine 100 MG TAB PO SCH ×2 (09:00→21:53)
[2017-02-04] MEDS: CHOLECALCIFEROL (VIT D3) 5000 UNIT CAP PO SCH (09:05)
[2017-02-04] MEDS: PROPRANOLOL HCL LA 120 MG CAP PO SCH (09:05)
[2017-02-04] MEDS: ARIPiprazole 10 MG TAB PO SCH (09:06)
[2017-02-04] MEDS: ACETAMINOPHEN 325 MG TAB PO PRN (09:52)
[2017-02-04 18:08] VITALS: BP 129/79; PULSE 76; RESP 18; TEMP 97.2; O2SAT 97
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
[2017-02-04] MEDS: REMOVE OLD NICOTINE PATCH T-DERMAL SCH (21:00)
[2017-02-04] MEDS: hydrOXYzine PAMOATE 25 MG CAP PO PRN (22:02)
[2017-02-04] MEDS: SUMAtriptan SUCCINATE 50 MG TAB PO PRN (22:03)
[2017-02-05 05:47] VITALS: BP 93/52; PULSE 73; RESP 18; TEMP 97.3
[2017-02-05] MEDS: MULTIVITAMINS/MINERALS THERAPEUTIC TAB PO SCH (08:40)
[2017-02-05] MEDS: PROPRANOLOL HCL LA 120 MG CAP PO SCH (08:40)
[2017-02-05] MEDS: FLUoxetine HCL 20 MG CAP PO SCH (08:40)
[2017-02-05] MEDS: lamoTRIgine 100 MG TAB PO SCH (08:40)
[2017-02-05] MEDS: CHOLECALCIFEROL (VIT D3) 5000 UNIT CAP PO SCH (08:40)
[2017-02-05] MEDS: cloZAPine 100 MG TAB PO SCH ×2 (08:40→22:11)
[2017-02-05] MEDS: ARIPiprazole 10 MG TAB PO SCH (08:41)
[2017-02-05] MEDS: NICOTINE 21 MG/24 HR PATCH T-DERMAL SCH (08:41)
--- NOTE | 2017-02-05 08:54 | PD.TTN ---
Present for Treatment Team Treatment Team Staff: Provider (Dr Stinson), Nurse (Rosario), Psych Therapist ( Remedios ), Occupational Therapist (Elian) Patient Problems 1. Discharge planning 2. Medication compliance 3. Knowledge deficit 4. Lack of coping skills Progress Toward Goals Provider Input: pt to stay to end of week family came for input Nurse Input: pt encouraged to keep eyes open he appears doing better Psych Therapist Input: pt imrpoving and pleasant and smiling Occupational Therapist Input: cannot see keeps in his room Additional Input family Tanya and Rebecca and 7 months old son came and they are glad to have him home Remedios Headley [facility] Feb 05, 2017 08:54
[2017-02-05 15:56] VITALS: BP 127/67; PULSE 72; RESP 18; TEMP 97.4; O2SAT 98
[2017-02-05] MEDS: REMOVE OLD NICOTINE PATCH T-DERMAL SCH (21:00)
[2017-02-05] MEDS: hydrOXYzine PAMOATE 25 MG CAP PO PRN (22:09)
[2017-02-05] MEDS: ACETAMINOPHEN 325 MG TAB PO PRN (22:10)
[2017-02-06 06:39] VITALS: BP 140/80; PULSE 72; RESP 18; TEMP 97.6; O2SAT 95
[2017-02-06] MEDS: PROPRANOLOL HCL LA 120 MG CAP PO SCH (08:24)
[2017-02-06] MEDS: cloZAPine 100 MG TAB PO SCH (08:24)
[2017-02-06] MEDS: lamoTRIgine 100 MG TAB PO SCH (08:24)
[2017-02-06] MEDS: CHOLECALCIFEROL (VIT D3) 5000 UNIT CAP PO SCH (08:25)
[2017-02-06] MEDS: NICOTINE 21 MG/24 HR PATCH T-DERMAL SCH (08:25)
[2017-02-06] MEDS: FLUoxetine HCL 20 MG CAP PO SCH (08:25)
[2017-02-06] MEDS: ARIPiprazole 10 MG TAB PO SCH (08:25)
[2017-02-06] MEDS: MULTIVITAMINS/MINERALS THERAPEUTIC TAB PO SCH (08:25)
[2017-02-06] MEDS ORDERED: TOPIRAMATE 25 MG TAB PO SCH (09:00)
[2017-02-06] MEDS ORDERED: PROP120 PO (14:31)
[2017-02-06] MEDS ORDERED: FLUO20CA12 PO (14:31)
[2017-02-06] MEDS ORDERED: LAMO100 PO (14:31)
[2017-02-06] MEDS ORDERED: ARIP1TAB12 PO (14:31)
[2017-02-06] MEDS ORDERED: TOPA25TA8 PO (14:31)
[2017-02-06] MEDS ORDERED: CLOZ100 PO ×2 (14:31)
[2017-02-06] MEDS ORDERED: IMIT50TA PO (14:31)
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
== END 2017-02-06 15:19 | disposition home or self-care (01) | DRG 885 ==
LOC: H260 15:20
PROVIDERS: ADMIT Psychiatry & Neurology Psychiatry; ATTEND Psychiatry & Neurology Psychiatry
DX: F25.9 Schizoaffective disorder, unspecified (principal); R44.0 Auditory hallucinations; F43.10 Post-traumatic stress disorder, unspecified; F60.3 Borderline personality disorder; G43.909 Migraine, unspecified, not intractable, without status migrainosus; F34.1 Dysthymic disorder
CPT/HCPCS: 80048; 80061; 80201; 83036; Q0177

== ENCOUNTER 2017-02-14 10:47 | Emergency (ER) | payer MEDICARE, OTHER ==
[~2017-02-14] VITALS: Ht 182.9 cm; Wt 132.5 kg
[~2017-02-14 10:47] MED LIST changes: +ARIP1TAB12 PO; +FLUO20CA12 PO; +IMIT50TA PO; +PROP120 PO
[2017-02-14 10:49] VITALS: BP 137/76; PULSE 92; RESP 24; TEMP 98.5; O2SAT 99
[2017-02-14] MEDS ORDERED: KETOROLAC TROMETHAMINE 60 MG/2 ML (IM) VIAL IM ONE (12:45)
[2017-02-14 13:00] VITALS: BP 134/78; PULSE 87; RESP 16; O2SAT 98
--- NOTE | 2017-02-14 13:03 | PD ---
HPI Chief Complaint: Psychiatric Symptoms Time Seen by Provider: 12:01 Travel History International Travel<30 days: No Contact w/Intl Traveler<30days: No Traveled to known affect area: No History of Present Illness HPI Patient is a 31-year-old male with history of schizoaffective disorder, PTSD, conversion disorder, who comes in saying that he has been having increased hallucinations and suicidal and homicidal ideations. He reports compliance with his medications. He does say he has a migraine, which is typical of migraine he's had in the past. He denies any other complaints. He says he wants to speak to a psychiatrist. PFSH Past Medical History Hx Anticoagulant Therapy: No Asthma: Yes Blood Disorders: No Anxiety: Yes Depression: Yes Heart Rhythm Problems: No Cancer: No Cardiovascular Problems: No High Cholesterol: No Chemotherapy: No Chest Pain: No Congestive Heart Failure: No COPD: No Cerebrovascular Accident: No Diabetes: No Diminished Hearing: No Endocrine: No Genitourinary: No Immune Disorder: No Musculoskeletal: No Neurologic: Yes Psychiatric: Yes Reproductive: No Respiratory: Yes (Asthma) Migraines: Yes Radiation Therapy: No Schizophrenia: Yes Seizures: No Sleep Apnea: No Thyroid Disease: No Past Surgical History Abdominal Surgery: No Cardiac Surgery: No Ear Surgery: No Endocrine Surgery: No Eye Surgery: No Genitourinary Surgery: No Gynecologic Surgery: No Neurologic Surgery: Yes (bilat ulnar nerves) Oral Surgery: No Thoracic Surgery: No Other Surgery: Yes (bilateral ulnar nerve surgeries and right wrist torn ligament) Social History Alcohol Use: No Tobacco Use: No Substance Use: No Allergies-Medications (Allergen,Severity, Reaction): Coded Allergies: Darvocet-N 100 (Verified Allergy, Unknown, 02/14/17) Gabapentin (Verified Allergy, Unknown, 02/14/17) Haldol (Verified Allergy, Unknown, 02/14/17) Reported Meds & Prescriptions Reported Meds & Active Scripts Active Zithromax Z-Conrad (Azithromycin) 250 Mg Dspk 250 Mg PO DIRECTED 500 MG (2 tabs) day 1, then 1 tab days 2-5. Imitrex (Sumatriptan Succinate) 50 Mg Tab 100 Mg PO DAILY PRN Lamictal (Lamotrigine) 100 Mg Tab 100 Mg PO DAILY 14 Days Aripiprazole 10 Mg Tab 25 Mg PO DAILY 14 Days Clozaril (Clozapine) 100 Mg Tab 400 Mg PO HS 15 Days Reported Lomotil (Diphenoxylate-Atropine) 2.5-0.025 Mg Tab 1 Tab PO Q6H PRN Vistaril (Hydroxyzine Pamoate) 50 Mg Cap 50 Mg PO Q6-8HRS PRN Carmine Multivitamin with Mineral (Multivitamin with Minerals) 1 Each Tablet 1 Tab PO DAILY Topamax (Topiramate) 50 Mg Tab 50 Mg PO BID Lamictal (Lamotrigine) 25 Mg Tab 25 Mg PO DAILY Propranolol ER 24 HR (Propranolol HCl) 120 Mg Cap 120 Mg PO BID Fish Oil ([place]-3 Fatty Acids) 1,000 Mg Cap 1,000 Mg PO DAILY Clozapine 100 Mg Tab 100 Mg PO DAILY @ 1200 Fluoxetine (Fluoxetine HCl) 40 Mg Cap 40 Cap PO DAILY Review of Systems Except as stated in HPI: all other systems reviewed are Neg General / Constitutional: No: Fever, Chills Eyes: No: Blurred Vision HENT: Positive: Headaches Cardiovascular: No: Chest Pain or Discomfort Respiratory: No: Shortness of Breath Gastrointestinal: Positive: Nausea, No: Vomiting, Abdominal Pain Musculoskeletal: Positive: Pain Skin: No Rash, No Change in Pigmentation Neurologic: No: Sensory Disturbance Psychiatric: Positive: Suicidal Ideations, Homicidal Ideation Physical Exam Narrative GENERAL: Awake and alert, in no acute distress. SKIN: Focused skin assessment warm/dry. HEAD: Atraumatic. Normocephalic. EYES: Pupils equal and round. No scleral icterus. Extraocular movements intact. ENT: No nasal bleeding or discharge. Mucous membranes pink and moist. NECK: Trachea midline. No JVD. CARDIOVASCULAR: Regular rate and rhythm. No murmur appreciated. RESPIRATORY: No accessory muscle use. Clear to auscultation. Breath sounds equal bilaterally. GASTROINTESTINAL: Abdomen soft, non-tender, nondistended. MUSCULOSKELETAL: No obvious deformities. No clubbing. No cyanosis. No edema. NEUROLOGICAL: Awake and alert. No obvious cranial nerve deficits. Motor grossly within normal limits. Normal speech. PSYCHIATRIC: Appropriate mood and affect; insight and judgment normal. Data Data Last Documented VS Vital Signs Date Time Temp Pulse Resp B/P Pulse Ox O2 Delivery O2 Flow Rate FiO2 02/14/17 10:49 98.5 92 24 137/76 99 Room Air Orders Complete Blood Count With Diff (02/14/17 12:21) Comprehensive Metabolic Panel (02/14/17 12:21) Psych Screen (02/14/17 12:21) Drug Screen, Random Urine (02/14/17 12:21) Ketorolac Inj (Toradol Inj) (02/14/17 12:45) Chest, Pa & Lat (02/14/17 ) Diet Regular Basic (02/14/17 Lunch) Diet Regular Basic (02/14/17 Dinner) Ceftriaxone Inj (Rocephin Inj) (02/14/17 15:15) Azithromycin Inj (Zithromax Inj) (02/14/17 15:15) Labs Laboratory Tests Test 02/14/17 13:10 White Blood Count 20.5 TH/MM3 Red Blood Count 4.69 MIL/MM3 Hemoglobin 14.4 GM/DL Hematocrit 41.9 % Mean Corpuscular Volume 89.4 FL Mean Corpuscular Hemoglobin 30.8 PG Mean Corpuscular Hemoglobin 34.5 % Concent Red Cell Distribution Width 13.2 % Platelet Count 231 TH/MM3 Mean Platelet Volume 9.0 FL Neutrophils (%) (Auto) 81.3 % Lymphocytes (%) (Auto) 12.1 % Monocytes (%) (Auto) 6.0 % Eosinophils (%) (Auto) 0.0 % Basophils (%) (Auto) 0.6 % Neutrophils # (Auto) 16.7 TH/MM3 Lymphocytes # (Auto) 2.5 TH/MM3 Monocytes # (Auto) 1.2 TH/MM3 Eosinophils # (Auto) 0.0 TH/MM3 Basophils # (Auto) 0.1 TH/MM3 CBC Comment DIFF FINAL Differential Comment Sodium Level 140 MEQ/L Potassium Level 3.5 MEQ/L Chloride Level 111 MEQ/L Carbon Dioxide Level 22.2 MEQ/L Anion Gap 7 MEQ/L Blood Urea Nitrogen 10 MG/DL Creatinine 1.11 MG/DL Estimat Glomerular Filtration 78 ML/MIN Rate Random Glucose 78 MG/DL Calcium Level 8.6 MG/DL Total Bilirubin 0.4 MG/DL Aspartate Amino Transf 27 U/L (AST/SGOT) Alanine Aminotransferase 45 U/L (ALT/SGPT) Alkaline Phosphatase 60 U/L Total Protein 7.2 GM/DL Albumin 3.7 GM/DL Urine Opiates Screen NEG Urine Barbiturates Screen NEG Urine Amphetamines Screen NEG Urine Benzodiazepines Screen NEG Urine Cocaine Screen NEG Urine Cannabinoids Screen NEG MDM Medical Decision Making Medical Screen Exam Complete: Yes Emergency Medical Condition: Yes Medical Record Reviewed: Yes Differential Diagnosis Psychosis versus malingering versus suicidality Narrative Course Patient is a 31-year-old male who comes in complaining of hallucinations that are telling him to kill people and himself. Exam shows no acute abnormalities. Labs sent. Patient will be medically cleared for psychiatric evaluation. Disposition per psychiatry. Patient does have a WBC count of 20.5 and evidence of pneumonia. Given Rocephin and Azithromycin. Given prescription for Azithromycin. Patient is cleared for psychiatric evaluation and will need to continue antibiotics for treatment of his pneumonia. He is medically stable. Diagnosis Primary Impression: Migraine Qualified Code: G43.909 - Migraine without status migrainosus, not intractable , unspecified migraine type Additional Impressions: Suicidal ideations Pneumonia Qualified Code: J18.1 - Pneumonia of right upper lobe due to infectious organism Scripts Azithromycin (Zithromax Z-Conrad)250 Mg [id number] Mg PO DIRECTED #1 DSPK Ref 0 500 MG (2 tabs) day 1, then 1 tab days 2-5. Prov:Erika Torres MD 02/14/17 Condition: Stable Erika Torres MD Feb 14, 2017 13:03
[2017-02-14 13:29] LABS: AUTOMATED NEUTROPHIL # 16.7 TH/MM3 (1.8-7.7); BASOPHIL # 0.1 TH/MM3 (0-0.2); BASOPHIL % 0.6 % (0.0-2.0); HEMATOCRIT 41.9 % (39.0-51.0); HEMO FLAGS DIFF FINAL; LYMPH % 12.1 % (9.0-44.0); LYMPHOCYTE # 2.5 TH/MM3 (1.0-4.8); MEAN CELL VOLUME 89.4 FL (80.0-100.0); MEAN CORPUSCULAR HEMOGLOBIN 30.8 PG (27.0-34.0); MEAN CORPUSCULAR HGB CONC 34.5 % (32.0-36.0); NEUT % 81.3 % (16.0-70.0); PLATELET COUNT 231 TH/MM3 (150-450); RED BLOOD COUNT 4.69 MIL/MM3 (4.50-5.90); RED CELL DISTRIBUTION WIDTH 13.2 % (11.6-17.2); WHITE BLOOD COUNT 20.5 TH/MM3 (4.0-11.0)
[2017-02-14 13:37] LABS: AMPHETAMINE, URINE NEG (NEG); BARBITURATES, URINE NEG (NEG); COCAINE, URINE NEG (NEG)
[2017-02-14] MEDS ORDERED: LAMO25 PO (13:39)
[2017-02-14] MEDS ORDERED: TOPA50TA7 PO (13:42)
[2017-02-14 13:44] LABS: ALT (GPT) 45 U/L (12-78); ANION GAP 7 MEQ/L (5-15); BICARBONATE 22.2 MEQ/L (21.0-32.0); BLOOD UREA NITROGEN 10 MG/DL (7-18); CHLORIDE 111 MEQ/L (98-107); GLOMERULAR FILTRATION RATE 78 ML/MIN (>89); POTASSIUM 3.5 MEQ/L (3.5-5.1); SODIUM (NA) 140 MEQ/L (136-145)
[2017-02-14] MEDS ORDERED: MULT-182 PO (13:44)
[2017-02-14 13:45] LABS: AST (GOT) 27 U/L (15-37)
[2017-02-14 13:46] LABS: ALKALINE PHOSPHATASE 60 U/L (45-117); TOTAL BILIRUBIN ADULT 0.4 MG/DL (0.2-1.0)
[2017-02-14] MEDS ORDERED: VIST50CA PO (13:48)
[2017-02-14] MEDS ORDERED: LOMO2.5T PO (13:49)
--- NOTE | 2017-02-14 15:02 | RADRPT ---
EXAM DATE/TIME: 02/14/2017 14:20 [place] COMPARISON: CHEST SINGLE AP, January 31, 2017, 13:07. INDICATIONS : Cough MEDICAL HISTORY : Asthma SURGICAL HISTORY : None. ENCOUNTER: Initial ACUITY: 1 day PAIN SCORE: 0/10 LOCATION: Bilateral chest FINDINGS: There is focal infiltrate right upper lobe not present previously. Heart and mediastinum are unremark able for technique. CONCLUSION: Right upper lobe pneumonia. Yanet Manning MD on February 14, 2017 at 15:00 Board Certified Radiologist. This report was verified electronically.
[2017-02-14] MEDS ORDERED: ZITHTAB PO (15:11)
[2017-02-14] MEDS ORDERED: cefTRIAXone INJ 1,000 MG in SODIUM CHLORIDE 0.9% INJ 100 ML IV ONE (15:15)
[2017-02-14] MEDS ORDERED: AZITHROMYCIN INJ 500 MG in SODIUM CHLOR 0.9% 250 ML INJ 250 ML IV ONE (15:15)
[2017-02-14 18:00] VITALS: BP 137/67; PULSE 82; RESP 18; TEMP 97.7; O2SAT 96
[2017-02-14 22:05] VITALS: BP 134/71; PULSE 65; RESP 18; O2SAT 97
[2017-02-14] MEDS ORDERED: SUMAtriptan SUCCINATE 50 MG TAB PO PRN (22:30)
[2017-02-14] MEDS ORDERED: AZITHROMYCIN 250 MG TAB PO ONE (23:00)
[2017-02-14] MEDS ORDERED: DIPHENOXYLATE/ATROPINE 2.5 MG/0.025 MG TAB PO PRN (23:00)
[2017-02-15] MEDS: PROPRANOLOL HCL LA 120 MG CAP PO SCH ×2 (00:16→09:00)
[2017-02-15 02:36] VITALS: BP 133/72; PULSE 71; RESP 18; O2SAT 95
[2017-02-15 06:52] VITALS: BP_SYST 100; BP_SYST 107; BP_DIAS 38; BP_DIAS 60; PULSE 76; RESP 18; O2SAT 98
[2017-02-15] MEDS ORDERED: FLUoxetine HCL 20 MG CAP PO SCH (09:00)
[2017-02-15] MEDS ORDERED: TOPIRAMATE 25 MG TAB PO SCH (09:00)
[2017-02-15] MEDS ORDERED: MULTIVITAMINS/MINERALS THERAPEUTIC TAB PO SCH (09:00)
[2017-02-15] MEDS ORDERED: ARIPiprazole 15 MG TAB PO SCH (09:00)
[2017-02-15] MEDS ORDERED: ARIPiprazole 10 MG TAB PO SCH (09:00)
[2017-02-15] MEDS ORDERED: lamoTRIgine 100 MG TAB PO SCH (09:00)
[2017-02-15] MEDS ORDERED: lamoTRIgine 25 MG TAB PO SCH (09:00)
[2017-02-15] MEDS ORDERED: OMEGA 1000 MG PO SCH (09:00)
[2017-02-15 10:27] VITALS: BP 120/77; PULSE 79; RESP 18; O2SAT 98
[2017-02-15] MEDS ORDERED: cloZAPine 100 MG TAB PO SCH ×2 (12:00→21:00)
--- NOTE | 2017-02-15 16:36 | PD.PSY.CON ---
Provisional Diagnosis Admission Date Date of consultation 02/15/2017 Dover I. 1. Schizoaffective disorder, other type Dover II. 1. Mixed personality disorder Dover V. GAF 55 presently History of Present Illness Service Psychiatry Consult Requested By Emergency department Reason for Consult Howell act Primary Care Physician Non-Staff HPI Mr. Fontenot is a 31-year-old male with a history of schizoaffective disorder and mixed personality disorder who presents on a voluntary basis for psychiatric evaluation. He told the ED provider that he was experiencing hallucinations and, reportedly, SI/HI. Reviewing the electronic medical record , I note that the patient was admitted most recently about [address] Stinson. I have discussed the case with Dr. Stinson who tells me that he suspects considerable Dover II pathology and does not think he would benefit from another admission. The case had been presented to Dr. Stinson overnight because patient has [facility] and declined to admit the patient at that time. Patient seen and examined. Chart reviewed. Case discussed with nursing staff. The patient has been under observation in the J-pod for almost 30 hours with no evidence of any suicidality or homicidality. He is noted by the nursing staff to be fairly needy and attention seeking. On my examination today personality disorder features, mostly histrionic/borderline/dependent, are evident. He says "when I was with Dr. 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 When I got my sight back, my symptoms went into overdrive." He reports that his loss of vision is thought to be due to conversion disorder, and he says that he has discussed with his psychiatrist that some of his other somatic symptoms may be conversion symptoms as well. Presently, he reports that he feels "a little bit depressed. " No hopelessness/worthlessness reported. No symptoms of severely decompensated depressive or bipolar illness elicited. He endorses visual hallucinations of "shadows" and deprecatory, noncommand auditory hallucinations. Patient has apparently been experiencing some financial stressors. He does not currently describe any suicidal or homicidal ideation, intent or plan. He contracts for safety. He would like to return home at this point. Nurse Blossom has reached out to patient's female partner, Tanya, and she is comfortable having the patient return home. The remainder of the psychiatric ROS is negative. Past psychiatric history: Patient has psychiatric diagnoses as noted above. Other diagnoses on the chart include posttraumatic stress disorder and dysthymia. He follows with Dr. Benito, whom he saw last week. His most recent psychiatric admission was under Dr. Stinson. He denies a history of interval suicide attempts but does have a history of remote suicide attempts. He reports that the plan with Dr. Benito is to pursue intensive psychotherapy with a provider named Hellen Fong in [place]. Patient's family, chemical dependency and social history were obtained by me under [id number], and I have discussed these with patient and they are materially unchanged today. Review of Systems Except as stated in HPI: all other systems reviewed are Neg Past Family Social History Coded Allergies: Darvocet-N 100 (Verified Allergy, Unknown, 02/14/17) Gabapentin (Verified Allergy, Unknown, 02/14/17) Haldol (Verified Allergy, Unknown, 02/14/17) Past Medical History see emr Active Scripts Azithromycin (Zithromax Z-Conrad)250 Mg [id number] Mg PO DIRECTED #1 DSPK Ref 0 500 MG (2 tabs) day 1, then 1 tab days 2-5. Prov:Erika Torres MD 02/14/17 Sumatriptan (Imitrex)50 Mg [id number] Mg PO DAILY PRN (MIGRAINE HEADACHE) #14 TAB Prov:Hernandez Stinson MD 02/06/17 Lamotrigine (Lamictal)100 Mg Mdg311 Mg PO DAILY 14 Days Prov:Hernandez Stinson MD 02/06/17 Aripiprazole 10 Mg Tab25 Mg PO DAILY 14 Days Prov:Hernandez Stinson MD 02/06/17 Clozapine (Clozaril)100 Mg Irq338 Mg PO HS 15 Days Ref 1 Prov:Wayne Roberson MD 09/22/16 Reported Medications Diphenoxylate-Atropine (Lomotil)2.5-0.025 Mg Tab1 Tab PO Q6H PRN (DIARRHEA) Ref 0 02/14/17 Hydroxyzine Pamoate (Vistaril)50 Mg Cap50 Mg PO Q6-8HRS PRN (ANXIETY) Ref 0 02/14/17 Multivitamin with Minerals (Carmine Multivitamin with Mineral)1 Each Tablet1 Tab PO DAILY 02/14/17 Topiramate (Topamax)50 Mg Tab50 Mg PO BID #60 TAB Ref 0 02/14/17 Lamotrigine (Lamictal)25 Mg Tab25 Mg PO DAILY #30 TAB Ref 0 02/14/17 Propranolol ER 24 HR 120 Mg Esf674 Mg PO BID #30 CAP Ref 0 09/11/16 Rentz-3 Fatty Acids (Fish Oil)1,000 Mg Cap1,000 Mg PO DAILY 09/11/16 Clozapine 100 Mg Icb773 Mg PO DAILY @ 1200 Ref 0 09/11/16 Fluoxetine 40 Mg Cap40 Cap PO DAILY #30 CAP Ref 0 09/11/16 Discontinued Reported Medications Sumatriptan (Imitrex)100 Mg Evg261 Mg PO ONCE PRN (MIGRAINE HEADACHE) Ref 0 If a satisfactory response has not been obtained at 2 hours, a second dose may be administered 09/11/16 Cholecalciferol (Vitamin D)5,000 Unit Tab1 Tab PO DAILY 09/11/16 Aripiprazole (Abilify)20 Mg Tab25 Mg PO DAILY #30 TAB Ref 0 09/11/16 Discontinued Scripts Topiramate (Topamax)25 Mg Tab50 Mg PO DAILY 14 Days Prov:Hernandez Stinson MD 02/06/17 Propranolol ER 24 HR (Inderal LA 24 HR)120 Mg Hdy717 Mg PO DAILY 14 Days Prov:Hernandez Stinson MD 02/06/17 Fluoxetine 20 Mg [id number] Mg PO DAILY 14 Days Prov:Hernandez Stinson MD 02/06/17 Clozapine (Clozaril)100 Mg Rqo635 Mg PO HS 14 Days Prov:Hernandez Stinson MD 02/06/17 Clozapine (Clozaril)100 Mg Jgg102 Mg PO DAILY 28 Days Prov:Hernandez Stinson MD 02/06/17 Topiramate (Topamax)25 Mg Tab50 Mg PO BID 15 Days Ref 1 Prov:Wayne Roberson MD 09/22/16 Lamotrigine (Lamictal)100 Mg Opn258 Mg PO DAILY 15 Days Ref 1 Prov:Wayne Roberson MD 09/22/16 Current Medications Medications (Trade) Dose Ordered Sig/Heavenly Route Start Time Stop Time Status Last Admin (PROzac) 40 mg DAILY PO 02/15/17 09:00 02/15/17 09:00 (Clozaril) 100 mg DAILY@12 PO 02/15/17 12:00 02/15/17 11:52 (Inderal La) 120 mg BID PO 02/14/17 23:00 02/15/17 00:16 (Clozaril) 400 mg HS PO 02/15/17 21:00 (Abilify) 10 mg DAILY PO 02/15/17 09:00 02/15/17 09:00 (Abilify) 15 mg DAILY PO 02/15/17 09:00 02/15/17 09:00 (LaMICtal) 100 mg DAILY PO 02/15/17 09:00 02/15/17 09:00 (Imitrex) 100 mg DAILY PRN PO 02/14/17 22:30 (LaMICtal) 25 mg DAILY PO 02/15/17 09:00 02/15/17 09:00 (Topamax) 50 mg BID PO 02/15/17 09:00 02/15/17 09:00 (Theragran M Tab) 1 tab DAILY PO 02/15/17 09:00 02/15/17 09:00 (Vistaril) 50 mg Q6H PRN PO 02/14/17 23:00 (Lomotil Tab) 1 tab Q6H PRN PO 02/14/17 23:00 (Zithromax) 250 mg Q24H PO 02/15/17 23:00 02/18/17 23:01 Patient's Strengths (min. 2) Connected to outpatient resources. Verbally fluent. Physical Exam Physical examination completed by ED provider. On my examination today, the patient appears to be in no acute physical distress. No motor abnormalities noted. Labs and vitals reviewed: Vital Signs Vital Signs Date Time Temp Pulse Resp B/P Pulse Ox O2 Delivery O2 Flow Rate FiO2 02/15/17 10:27 79 18 120/77 98 Room Air 02/14/17 18:00 97.7 Lab Results Laboratory Tests Test 02/14/17 13:10 White Blood Count 20.5 TH/MM3 Red Blood Count 4.69 MIL/MM3 Hemoglobin 14.4 GM/DL Hematocrit 41.9 % Mean Corpuscular Volume 89.4 FL Mean Corpuscular Hemoglobin 30.8 PG Mean Corpuscular Hemoglobin 34.5 % Concent Red Cell Distribution Width 13.2 % Platelet Count 231 TH/MM3 Mean Platelet Volume 9.0 FL Neutrophils (%) (Auto) 81.3 % Lymphocytes (%) (Auto) 12.1 % Monocytes (%) (Auto) 6.0 % Eosinophils (%) (Auto) 0.0 % Basophils (%) (Auto) 0.6 % Neutrophils # (Auto) 16.7 TH/MM3 Lymphocytes # (Auto) 2.5 TH/MM3 Monocytes # (Auto) 1.2 TH/MM3 Eosinophils # (Auto) 0.0 TH/MM3 Basophils # (Auto) 0.1 TH/MM3 CBC Comment DIFF FINAL Differential Comment Sodium Level 140 MEQ/L Potassium Level 3.5 MEQ/L Chloride Level 111 MEQ/L Carbon Dioxide Level 22.2 MEQ/L Anion Gap 7 MEQ/L Blood Urea Nitrogen 10 MG/DL Creatinine 1.11 MG/DL Estimat Glomerular Filtration 78 ML/MIN Rate Random Glucose 78 MG/DL Calcium Level 8.6 MG/DL Total Bilirubin 0.4 MG/DL Aspartate Amino Transf 27 U/L (AST/SGOT) Alanine Aminotransferase 45 U/L (ALT/SGPT) Alkaline Phosphatase 60 U/L Total Protein 7.2 GM/DL Albumin 3.7 GM/DL Urine Opiates Screen NEG Urine Barbiturates Screen NEG Urine Amphetamines Screen NEG Urine Benzodiazepines Screen NEG Urine Cocaine Screen NEG Urine Cannabinoids Screen NEG Mental Status Examination Patient is in hospital gown. He is fairly well groomed and maintaining basic hygiene. Patient is awake and alert and oriented 3. No evidence of delirium. No motor abnormalities noted. Speech is within normal limits for rate, tone, volume. Mood is a little down but not severely depressed. Affect remains fairly full and reactive. Thought processes linear. No evident delusions. Endorses deprecatory, noncommand auditory hallucinations, which he reports are chronic in which he says he has never been without for any length of time. VH of shadows. He does not appear internally stimulated. No suicidal or homicidal ideation, intent or plan at this time and the patient contracts for safety. Insight and judgment seem fair at best; the patient did come voluntarily into the emergency room. Assessment & Plan Problem List: (1) Schizoaffective disorder ICD Code: F25.9 (2) Mixed personality disorder ICD Code: F60.89 Assessment & Plan This is a 31-year-old male with psychiatric history as detailed above presently in the J-pod under Howell act by ED provider. Significant personality pathology is evident on my exam. Patient's describes deprecatory but not command auditory hallucinations. He presently has no suicidal or homicidal ideation, intent or plan and contracts for safety. The nurse has obtained reassuring collateral from the patient's female partner, Tanya. The patient appears to be attending to his basic needs. There has been no evidence of any suicidality or homicidality despite observation in the emergency room for nearly 30 hours. Weighing the relevant factors and synthesizing the available information, I chemistry specialist the patient does not presently meet the Howell act criteria. I chemistry specialist that he is at low imminent risk of harm to self or others from a mental illness as defined under the Howell act. I do suspect there is a component of chronic risk related to his personality pathology that would not be ameliorated by admitting the patient to the inpatient unit. I have lifted the Howell Act. Patient is requesting discharge from the ED today. I have recommended that he follow closely with Dr. Benito and call Dr. Benito's office to try to get a sooner appointment, within the next week if possible. I strongly recommended that he pursue psychotherapy as I suspect that this will be more helpful in the long run for his significant personality pathology than pharmacotherapy. I have counseled the patient regarding warning signs for need to return to the psychiatric emergency room as part of the general safety plan, and the patient does contract for safety as I said. Patient psychiatrically clear for discharge. Request HC Surrog/Guard Advoc?: No Problem Qualifiers (1) Schizoaffective disorder: Qualified Code: F25.8 - Other schizoaffective disorders Wayne Roberson MD Feb 15, 2017 16:36
[2017-02-15 16:50] VITALS: BP 120/77
[2017-02-15] MEDS ORDERED: AZITHROMYCIN 250 MG TAB PO SCH (23:00)
== END 2017-02-15 17:03 | disposition home or self-care (01) ==
LOC: NEPD 10:47 → NEPJ 02-15 17:03
DX: G43.909 Migraine, unspecified, not intractable, without status migrainosus (principal); R45.851 Suicidal ideations; J18.1 Lobar pneumonia, unspecified organism; Z79.899 Other long term (current) drug therapy
CPT/HCPCS: 71020; 80053; 80307; 85025; 96365; 96367; 96372; 99284; J0456; J0696; J1885; J7050